=== PATIENT | male | born 1945 | race Caucasian/White ===

== ENCOUNTER 2016-12-24 05:46 | Day surgery (SDC) | payer OTHER ==
--- NOTE | 2016-12-24 06:18 | PDANEPAE ---
ANE History of Present Illness 71 yo male with multi co-morbidities for R shoulder arthroscopy. ANE Past Medical History - Cardiovascular History Hx Hypertension: Yes Hx Arrhythmias: Yes Hx Chest Pain: No Hx Coronary Artery / Peripheral Vascular Disease: No Hx CHF / Valvular Disease: No Hx Palpitations: No Cardiovascular History Comment: cardioversion for flutter 1216 takes flecainide.Converted to NSR 16. - Pulmonary History Hx COPD: No Hx Asthma/Reactive Airway Disease: No Hx Recent Upper Respiratory Infection: No Hx Oxygen in Use at Home: Yes O2 in Use at Home (L/minute): 5L for sleeping;5L 14/wk-while working Hx Sleep Apnea: Yes Sleep Apnea Screening Result - Last Documented: Positive Pulmonary History Comment: sleep apnea-bipap. chronic low o2 sats usually mid 80's - Neurologic History Hx Cerebrovascular Accident: No Hx Seizures: No Hx Dementia: No - Endocrine History Hx Diabetes: Yes Obesity: moderate Endocrine History Comment: type 2 - Renal History Hx Renal Disorders: Yes Renal History Comment: hx kidney stones- passed. - Liver History Hx Hepatic Disorders: Yes Hepatic History Comment: hx hep 40 yrs ago- ostrolus r/t hygiene in [place]. jaundice while living in [place]. - Neurological & Psychiatric Hx Hx Neurological and Psychiatric Disorders: Yes Neurological / Psychiatric History Comment: mild depression- comes and goes - Cancer History Hx Cancer: No - Congenital Disorder History Hx Congenital Disorders: No - GI History Hx Gastrointestinal Disorders: No - Other Health History Other Health History: gout. osteoarthritis. bursitis. tendonitis-3 tendons torn R shoulder. wilson splints. - Chronic Pain History Chronic Pain: Yes (all joints) - Surgical History Prior Surgeries: L total hip 2014. 2011- l shoulder arthroscopy subacromial decompression, rot cuff repair,labral debride. l thumb reconstruction. 2003- tooth ext. ANE Review of Systems Review of Systems: - Exercise capacity METS (RN): 4 METS - Systems Constitutional: Reports: no symptoms EENMT: Reports: other (clear rhinorrhea x3 days last week, now resolved, no other symptoms) Cardiac: Reports: no symptoms Respiratory: Reports: shortness of breath (chronic, stable; worse with activity) ANE Patient History - Allergies Allergies/Adverse Reactions: levofloxacin [From Levaquin] Allergy (Verified 12/19/16 16:08) Other-Enter Comments - Home Medications Home medications: home medication list seen and reviewed Home Medications: Flecainide Acetate [Tambocor] 100 mg PO BIDMEAL 09/03/11 [Last Taken 03/10/16 08 :00] Metoprolol Tartrate [Lopressor 100 mg (*)] 100 mg PO DAILY@09/03/11 [Last Taken 03/10/16 08:00] metFORMIN HCL [Glucophage 500 mg (*)] 500 mg PO BIDMEAL 09/03/11 [Last Taken 08:00] Aspirin EC [Aspirin EC 81 mg (*)] 81 mg PO DAILY 05/24/13 [Last Taken 12/18/16 09:30] Gemfibrozil [Lopid 600 MG (*)] 600 mg PO BIDMEAL 05/24/13 [Last Taken 03/10/16 08:00] Pravastatin Sodium 20 mg PO HS 05/24/13 [Last Taken 03/09/16] Insulin Lispro [Humalog Kwikpen U-100] 35 units SC BIDAC 07/19/15 [Last Taken 08:00] [place]-3 Fatty Acids [Fish Oil 1000 mg (*)] 1,000 mg PO BIDMEAL 07/19/15 [Last Taken 12/19/16 09:30] Acetaminophen [Tylenol 325mg (*)] 650 mg PO Q6 PRN 11/22/15 [Last Taken 03/06/16 ] Losartan Potassium [Cozaar] 50 mg PO DAILY 11/22/15 [Last Taken 03/10/16] Allopurinol [Allopurinol 100 MG (*)] 100 mg PO BID 03/10/16 [Last Taken 08:00] Dulaglutide [Trulicity] 1.5 mg SC MO@03/10/16 [Last Taken 03/04/16] Herbals/Supplements -Info Only 1 ea PO DAILY 03/10/16 [Last Taken 12/19/16 09:30 ] Metoprolol Tartrate [Lopressor 100 mg (*)] 200 mg PO DAILY@18 03/10/16 [Last Taken 03/09/16] ERYTHROMYCIN 2% GEL 12/19/16 [Last Taken Unknown] Lantus 100 UNITS/ML (*) 12/19/16 [Last Taken Unknown] Warfarin Sodium 12/19/16 [Last Taken 12/18/16 19:00] - NPO status NPO Since - Liquids (Date): 12/24/16 NPO Since - Liquids (Time): 02:30 NPO Since - Solids (Date): 12/23/16 - Anes Hx Anes Hx: slow to awaken from anesthesia - Smoking Hx Smoking Status: Never smoked Marijuana use: No - Alcohol Use Alcohol Use: Rarely - Family Anes Hx Family Anes Hx: neg - N/A Family Hx Anesthesia Complications: none ANE Labs/Vital Signs - Labs Result Diagrams: 12/24/16 07:00 - Vital Signs Vital Signs: reviewed preoperatively; see RN documention for details Height: 190.5 cm Weight: 131.542 kg ANE Physical Exam - Airway Neck exam: FROM Mallampati Score: Class 2 Mouth exam: normal dental/mouth exam - Pulmonary Pulmonary: other (coarse breath sounds throughout) - Cardiovascular Cardiovascular: regular rate and rhythym - ASA Status ASA Status: III ANE Anesthesia Plan Anesthesia Plan: general endotracheal anesthesia
[2016-12-24] MEDS ORDERED: BUPIVACAINE 0.5% 30 ML SDV ONE (06:55)
[2016-12-24] MEDS ORDERED: EPINEPHrine 30 MG/30 ML MDV ONE (06:56)
[2016-12-24] MEDS ORDERED: LIDOCAINE 1% 2 ML INJ ID PRN (07:05)
[2016-12-24] MEDS ORDERED: LR 1,000 ML IV ONE (07:05)
[2016-12-24] MEDS ORDERED: ceFAZolin 2 GM in NS 100 ML IV ONE (07:19)
[2016-12-24 07:27] LABS: INR 1.13 (0.83-1.16); PROTIME(PATIENT) 14.4 SEC (12.0-15.0)
[2016-12-24] MEDS ORDERED: LIDOCAINE 2% 5 ML SDV ONE (07:27)
[2016-12-24] MEDS ORDERED: fentaNYL 100 MCG/2 ML INJ ONE ×3 (07:27→10:13)
[2016-12-24] MEDS ORDERED: PROPOFOL/EMULSION 500 MG/50 ML BOTTLE IV ONE ×2 (07:27)
[2016-12-24] MEDS ORDERED: ROCURONIUM 50 MG/5 ML VIAL ONE (07:27)
[2016-12-24] MEDS ORDERED: ceFAZolin 2 GM/DEXTROSE 100 ML IV ONE (07:30)
[2016-12-24] MEDS ORDERED: ONDANSETRON 4 MG/2 ML VIAL ONE (07:35)
[2016-12-24 07:48] LABS: ANION GAP 12 mEq/L (8-16); CARBON DIOXIDE 17 mEq/l (22-31); CHLORIDE 108 mEq/L (97-110); CREATININE 1.4 mg/dL (0.7-1.3); GLOMERULAR FILTRATION RATE 50; GLUCOSE 212 mg/dL (70-100); SODIUM 137 mEq/L (134-144)
[2016-12-24] MEDS ORDERED: INSULIN REGULAR HUMAN 100 UNIT/ML SC ONE ×2 (07:49→10:40)
--- NOTE | 2016-12-24 08:02 | PDGENHP ---
History & Physical Chief Complaint: shoulder pain History of Present Illness: 71 yo Pertinent Past, Social, Family History: none Relevant Physical Exam: pain
[2016-12-24] MEDS ORDERED: LIDOCAINE 1% 300 MG/30 ML SDV ONE (08:10)
[2016-12-24] MEDS ORDERED: INSULIN REGULAR HUMAN 100 UNIT/ML ONE ×2 (08:47→10:40)
[2016-12-24] MEDS ORDERED: LR 500 ML IV PRN (09:40)
[2016-12-24] MEDS ORDERED: HYDROCODONE/APAP 5/325 TAB PO PRN (09:40)
[2016-12-24] MEDS ORDERED: NALOXONE HCL 0.4 MG/ML INJ IVP PRN ×2 (09:40→09:42)
[2016-12-24] MEDS ORDERED: ACETAMINOPHEN 500 MG TAB PO PRN (09:40)
[2016-12-24] MEDS ORDERED: ALBUTEROL 3 ML DEYVIAL IH PRN (09:40)
[2016-12-24] MEDS ORDERED: PROMETHAZINE HCL 25 MG/ML INJ IVP PRN (09:40)
--- NOTE | 2016-12-24 10:14 | POSTANESTH ---
Post Anesthetic Evaluation Cardiovascular Status: Normal, Stable Respiratory Status: Tx Decrease in SpO2 Level of Consciousness/Mental Status: Can Participate in Eval, Mildly Sleepy, Arousable Pain Control: Adequate, Prn Tx Ordered Nausea/Vomiting Control: Adequate, Prn Tx Ordered Complications Possibly Related to Anesthesia: None Noted (Pt on home CPAP settings with O2 bleed in to maintain SpO2 >90%)
[2016-12-24] MEDS: fentaNYL 100 MCG/2 ML INJ IVP PRN ×2 (10:15→10:39)
[2016-12-24] MEDS ORDERED: HYDROCODONE/APAP 5/325 TAB ONE (11:06)
[2016-12-24 11:59] VITALS: PULSE 53; TEMP 96.8
[2016-12-24 14:31] VITALS: BP 127/74; RESP 15; O2SAT 90
--- NOTE | 2017-01-09 12:52 | GOP ---
[f rep st] OPERATIVE REPORT DATE OF OPERATION: 12/24/2016 SURGEON: Estela Reyes MD ANESTHESIA: General. PREOPERATIVE DIAGNOSIS: Right shoulder impingement syndrome with associated labral pathology, glenoh umeral arthritic changes, acromioclavicular arthropathy. Rule out biceps tendinitis. POSTOPERATIVE DIAGNOSIS: Right shoulder impingement syndrome with associated labral pathology, gleno humeral arthritic changes, acromioclavicular arthropathy. Rule out biceps tendinitis. With signific antly fraying of the long head of the biceps involving the intra-articular portion. PROCEDURE PERFORMED: 1. Arthroscopic debridement of partial-thickness rotator cuff tear, labral fraying, and glenohumeral chondral changes. 2. Arthroscopic subacromial decompression. 3. Biceps tenotomy. 4. Channing resection of distal clavicle. FINDINGS: ESTIMATED BLOOD LOSS: 5 cc. INDICATIONS: This patient is a 71-year-old right-hand dominant male, who has had right shoulder pain , which has been unresponsive to conservative management. He has been evaluated with an MRI scan, wh ich shows evidence of the above-noted preoperative diagnoses. He was admitted for operative treatmen t. DESCRIPTION OF PROCEDURE: After the induction of a general anesthetic, the patient was placed on the operating room table in a modified beach chair position. His right shoulder, axilla, and arm were p repped and draped in the usual fashion. Standard arthroscopic portals were utilized. The scope was introduced through the posterior portal, and the glenohumeral joint inspected. The intra-articular e xam was remarkable for a constellation of abnormal findings. There was a partial-thickness tear invo lving the supraspinatus at its insertion on the greater tuberosity. This was minimally debrided. It appeared to involve much less than 50% of the depth of the tendon in a segment that measured approxi mately a centimeter and a half in length. It was felt to be a lesion that would likely heal followin g decompression. The glenoid and humeral articular surfaces were in relatively good condition. There was some focal c hondral damage on both the humeral and glenoid sides, which was minimally debrided. There were no ar eas of full-thickness loss. The biceps tendon was inspected. There was sign fraying, as the long head of the biceps exited the s houlder. The damage appeared to be greater than what would likely heal following debridement and dec ompression. A biceps tenotomy was therefore performed. There was some fraying of the anterior and superior labrum, which was minimally debrided with the rot vannessa debrider. The glenohumeral ligament/labral complex appeared to be competent. The scope was passed to the subacromial space. There was marked chaffing of the CA ligament at its i nsertion on the anterior acromion. The undersurface of the acromion was resected, and the CA ligament released. The markedly-prominent anterior lip to the acromion was removed with the rotary best. Approximately a centimeter of anterio r bone was resected. The resection was tapered posteriorly till it blended nicely with the subacromi al surface. This nicely decompressed the subacromial space. The AC joint was inspected. There was diffuse grade 3 with focal grade 4 arthritic change on the dis tatyana clavicle. There was also a large spur emanating from the inferior surface of the distal clavicle , encroaching on the acromial outlet. A distal clavicular excision was, therefore, performed. Appro ximately the distal centimeter of the clavicle was removed. At this point, the debrider was evacuated from the shoulder and subacromial space before the arthrosc opic equipment was removed. The portals were infiltrated with 0.25% Marcaine solution before being c losed with 5-0 Vicryl. Steri-Strips and sterile compressive dressing were applied, and the patient w as awakened from his anesthetic without complication. COMPLICATIONS: None. /[id number]/MODL
== END 2016-12-24 14:44 | disposition home or self-care (01) ==
LOC: FSGY 05:46
PROVIDERS: ATTEND Orthopaedic Surgery
PROC: 0LS14ZZ Reposition Right Shoulder Tendon, Percutaneous Endoscopic Approach (ICD-10-PCS; principal; 2016-12-24 07:15)
PROC: 0MB14ZZ Excision of Right Shoulder Bursa and Ligament, Percutaneous Endoscopic Approach (ICD-10-PCS; principal; 2016-12-24 07:15)
PROC: 0PB94ZZ Excision of Right Clavicle, Percutaneous Endoscopic Approach (ICD-10-PCS; principal; 2016-12-24 07:15)
PROC: 0MN14ZZ Release Right Shoulder Bursa and Ligament, Percutaneous Endoscopic Approach (ICD-10-PCS; principal; 2016-12-24 07:15)
DX: S46.191A Other injury of muscle, fascia and tendon of long head of biceps, right arm, initial encounter (principal); S43.421A Sprain of right rotator cuff capsule, initial encounter; M19.011 Primary osteoarthritis, right shoulder
CPT/HCPCS: J0171; J0690; J1815; J2405; J2704; J3010

== ENCOUNTER 2017-07-03 15:22 | Inpatient (IN) | payer OTHER ==
--- NOTE | 2017-07-03 16:16 | CPEKG ---
Heart Rate: 46 RR Interval: 1304 P-R Interval: 268 QRSD Interval: 132 QT Interval: 524 QTC Interval: 459 P [place]: 34 QRS [place]: 242 T Wave [place]: 51 EKG Severity - ABNORMAL ECG - EKG Impression: SINUS BRADYCARDIA EKG Impression: FIRST DEGREE AV BLOCK EKG Impression: NONSPECIFIC IVCD WITH LAD EKG Impression: BORDERLINE R WAVE PROGRESSION, ANTERIOR LEADS Electronically Signed By: Nel Garsia 03-Jul-2017 21:38:30
--- NOTE | 2017-07-03 16:16 | EDPHY ---
HPI/HX/ROS/PE/MDM Narrative: CHIEF COMPLAINT: Dizzy, lightheaded HISTORY OF PRESENT ILLNESS: The patient is an anticoagulated (Coumadin) 72 y/o male with a history of atrial fibrillation and type 2 diabetes complaining of intermittent episodes feeling dizzy and lightheaded that last for several hours, onset 3 days ago. His physician recommended that he present to the ED today as the dizziness has not improved. He is currently not feeling dizzy. Denies taking medications for CHF. Patient is on flecainide for arrhythmias No fever, chills, chest pain, shortness of breath, palpitations, vomiting, diarrhea, urinary complaints, headache. REVIEW OF SYSTEMS: Aside from elements discussed in the HPI, a comprehensive 10-point review of systems was reviewed and is negative. PAST MEDICAL HISTORY: Atrial fibrillation, type 2 diabetes, low O2 sats (seen at [facility]) with O2 dependency,, hepatitis A, multiple ortho surgeries, wears 4L supplemental oxygen with exertion. SOCIAL HISTORY: Friend at bedside, employed, lives in [place] VITAL SIGNS: Reviewed by me GENERAL: Obese gentleman, resting comfortably in no respiratory distress. HEENT: Atraumatic. Eyes: No icterus, no injection. Mouth: moist mucous membranes. No erythema or lesions. Neck: supple with no adenopathy. LUNGS: Clear to auscultation bilaterally, no wheezes, rhonchi or rales. CARDIAC: Regular bradycardia with a rate of 40, no rubs, murmurs or gallops. ABDOMEN: Soft, nontender, nondistended, bowel sounds normal. BACK: No CVA tenderness. EXTREMITIES: No trauma. No edema. Range of motion is normal throughout. NEURO: Alert and oriented, grossly nonfocal. SKIN: Warm and dry, no rash. PSYCHIATRIC: Normal mentation, no agitation. Portions of this note were transcribed by a medical dir. I personally performed a history, physical exam, medical decision making, and confirmed accuracy of information the transcribed note. ED Course: The patient is an anticoagulated (Coumadin) 72 y/o male with a history of atrial fibrillation and type 2 diabetes presenting with intermittent episodes of feeling dizzy and lightheaded that last for several hours, onset 3 days ago. Labs and EKG ordered. 1614: 12-LEAD EKG: Please see the full report in [facility]. My interpretation : Sinus bradycardia with a rate of 46, first degree AV block 1706: Patient has a potassium of 6.1 and a creatinine of 1.5. Given his dizziness in the setting of bradycardia as well as worsening renal function with a potassium of 6.1, patient received treatment for hyperkalemia including calcium, bicarbonate, D50, insulin. 1715: Consulted with hospitalist service, Dr. Avila accepts admission of this patient. Reassessed patient and discussed laboratory and EKG findings. I have also discussed plan for admission, which he is comfortable with. MDM: Differential diagnosis of the patient's dizziness was considered including but not limited to peripheral and central causes of vertigo, cardiac arrhythmias, cardiac ischemia, electrolyte disturbances, neurologic causes, orthostatic causes including dehydration, and blood loss. - Data Points Imaging Results: Imaging Impressions Carotid Doppler Study 07/03/17 06:00 Impression: No evidence of flow-limiting carotid stenosis. Measurement of carotid stenosis is based on velocity parameters that correlate the residual internal carotid diameter with [place] Symptomatic Carotid Endarterectomy Trial (NASCET) based stenosis levels. Laboratory Results: Laboratory Results 07/03/17 16:20 07/03/17 16:20 07/03/17 07/03/17 16:20 16:20 WBC 6.67 10^3/uL 10^3/uL (3.80-9.50) RBC 5.16 10^6/uL 10^6/uL (4.40-6.38) Hgb 16.0 g/dL g/dL (13.7-17.5) Hct 47.6 % % (40.0-51.0) MCV 92.2 fL fL (81.5-99.8) MCH 31.0 pg pg (27.9-34.1) MCHC 33.6 g/dL g/dL (32.4-36.7) RDW 15.3 % H % (11.5-15.2) Plt Count 188 10^3/uL 10^3/uL (150-400) MPV 10.8 fL fL (8.7-11.7) Neut % (Auto) 51.6 % % (39.3-74.2) Lymph % (Auto) 34.8 % % (15.0-45.0) [place] % (Auto) 9.3 % % (4.5-13.0) Eos % (Auto) 3.3 % % (0.6-7.6) Baso % (Auto) 0.6 % % (0.3-1.7) Nucleat RBC Rel Count 0.0 % % (0.0-0.2) Absolute Neuts (auto) 3.44 10^3/uL 10^3/uL (1.70-6.50) Absolute Lymphs (auto) 2.32 10^3/uL 10^3/uL (1.00-3.00) Absolute Monos (auto) 0.62 10^3/uL 10^3/uL (0.30-0.80) Absolute Eos (auto) 0.22 10^3/uL 10^3/uL (0.03-0.40) Absolute Basos (auto) 0.04 10^3/uL 10^3/uL (0.02-0.10) Absolute Nucleated RBC 0.00 10^3/uL 10^3/uL (0-0.01) Immature Gran % 0.4 % % (0.0-1.1) Immature Gran # 0.03 10^3/uL 10^3/uL (0.00-0.10) Sodium 139 mEq/L mEq/L (135-145) Potassium 6.1 mEq/L H mEq/L (3.5-5.2) Chloride 109 mEq/L mEq/L (97-110) Carbon Dioxide 19 mEq/l L mEq/l (22-31) Anion Gap 11 mEq/L mEq/L (8-16) BUN 42 mg/dL H mg/dL (7-23) Creatinine 1.5 mg/dL H mg/dL (0.7-1.3) Estimated GFR 46 Glucose 223 mg/dL H mg/dL (70-100) Calcium 8.6 mg/dL mg/dL (8.5-10.4) Troponin I < 0.012 ng/mL ng/mL (0.000-0.034) Specimen Hemolysis 101 Medications Given: Insulin Glargine (Lantus Syringe) 40 units SC BID EARL Stop: 12/30/17 20:59 Last Admin: 07/03/17 22:17 Dose: 40 units [id number] Ethyl Esters (Fish Oil) 1,000 mg PO TID EARL Stop: 12/30/17 21:59 Last Admin: 07/03/17 22:17 Dose: 1,000 mg Pravastatin Sodium (Pravachol) 20 mg PO HS EARL Stop: 12/30/17 20:59 Last Admin: 07/03/17 22:17 Dose: 20 mg Discontinued Medications Calcium Gluconate (Calcium Gluconate) 1 gm IVP EDNOW ONE Stop: 07/03/17 17:05 Last Admin: 07/03/17 17:14 Dose: 1 gm Dextrose (Dextrose 50% Syringe) 25 gm IVP EDNOW ONE Stop: 07/03/17 17:05 Last Admin: 07/03/17 17:15 Dose: 25 gm Furosemide (Lasix Injection) 20 mg IVP ONCE ONE Stop: 07/03/17 21:12 Last Admin: 07/03/17 22:17 Dose: 20 mg Sodium Bicarbonate 150 meq/ (Dextrose) 1,150 mls @ 0 mls/hr IV EDNOW ONE PRN Reason: As Directed Stop: 07/03/17 17:05 Last Admin: 07/03/17 17:39 Dose: 1,150 mls Insulin Human Regular (Humulin R) 10 unit IVP EDNOW ONE Stop: 07/03/17 17:05 Last Admin: 07/03/17 17:20 Dose: 10 units Sodium Polystyrene Sulfonate (Kayexalate) 30 gm PO EDNOW ONE Stop: 07/03/17 17:05 Last Admin: 07/03/17 17:23 Dose: 30 gm General Time Seen by Provider: 07/03/17 16:14 Initial Vital Signs: Initial Vital Signs Temperature (C) 36.7 C 07/03/17 15:34 Heart Rate 49 L 07/03/17 15:34 Respiratory Rate 18 07/03/17 15:34 Blood Pressure 161/81 H 07/03/17 15:34 O2 Sat (%) 92 07/03/17 15:34 O2 Delivery Mode Room Air Allergies/Adverse Reactions: levofloxacin [From Levaquin] Allergy (Verified 07/03/17 15:32) Other-Enter Comments Home Medications: Medication Instructions Recorded Flecainide Acetate [Tambocor] 100 mg PO BIDMEAL 09/03/11 metFORMIN HCL [Glucophage 500 mg 500 mg PO BIDMEAL 09/03/11 (*)] Aspirin EC [Aspirin EC 81 mg (*)] 81 mg PO DAILY 05/24/13 Pravastatin Sodium 20 mg PO HS 05/24/13 [place]-3 Fatty Acids [Fish Oil 1000 1,000 mg PO TID 07/19/15 mg (*)] Losartan Potassium [Cozaar] 50 mg PO DAILY 11/22/15 Allopurinol [Allopurinol 100 MG 100 mg PO BID 03/10/16 (*)] Herbals/Supplements -Info Only 1 ea PO DAILY 03/10/16 Insulin Detemir [Levemir] 40 unit SQ BID 07/03/17 Insulin Lispro [Humalog] 25 unit SQ DAILY@07/03/17 Insulin Lispro [Humalog] 40 unit SQ BID 07/03/17 Warfarin Sodium [Coumadin 5MG (*)] 5 mg PO MOTUWETHFRSA@07/03/17 Warfarin Sodium [Coumadin 5MG (*)] 5 mg PO DOWNING@07/03/17 Departure - Departure Disposition: [facility] Acute Clinical Impression: Hyperkalemia, Bradycardia, Dizziness, Renal insufficiency Condition: Fair Report Scribed for: Nel Garsia Report Scribed by: Reina Rodriguez Date of Report: 07/03/17 Time of Report: 16:16
[2017-07-03 16:29] LABS: PLATELET COUNT 188 10^3/uL (150-400)
[2017-07-03] MEDS ORDERED: D50W 25 GM/50 ML SYR IVP ONE (17:04)
[2017-07-03] MEDS ORDERED: SODIUM BICARBONATE 150 MEQ in D5W 1,000 ML IV ONE (17:04)
[2017-07-03] MEDS ORDERED: CALCIUM GLUC 10% 1 GM/10 ML VIAL IVP ONE (17:04)
[2017-07-03] MEDS ORDERED: SODIUM POLY SULF 15 GM/60 ML BOTTLE PO ONE (17:04)
[2017-07-03] MEDS ORDERED: INSULIN REGULAR HUMAN 100 UNIT/ML UNIT IVP ONE (17:04)
[2017-07-03] MEDS ORDERED: ONDANSETRON DISINTEGRATING 4 MG TAB PO PRN (20:51)
[2017-07-03] MEDS ORDERED: D50W 25 GM/50 ML VIAL IVP PRN (20:51)
[2017-07-03] MEDS ORDERED: HYDROCODONE/APAP 5/325 TAB PO PRN (20:51)
[2017-07-03] MEDS ORDERED: ACETAMINOPHEN 325 MG TAB PO PRN (20:51)
[2017-07-03] MEDS ORDERED: ONDANSETRON 4 MG/2 ML VIAL IVP PRN (20:51)
[2017-07-03] MEDS ORDERED: hydrALAZINE 20 MG/ML VIAL IVP PRN (20:55)
[2017-07-03] MEDS ORDERED: PRAVASTATIN SODIUM 20 MG TAB PO SCH (21:00)
[2017-07-03] MEDS ORDERED: FUROSEMIDE 20 MG/2 ML VIAL IVP ONE (21:11)
--- NOTE | 2017-07-03 21:29 | PDGENHP ---
History and Physical - Chief Complaint dizzy, weakness - History of Present Illness 72 y/o male with a history of atrial fibrillation and type 2 diabetes complaining of intermittent episodes feeling dizzy and lightheaded that last for several hours, onset 3 days ago. His physican recommended that he present to the ED today as the dizziness has not improved. He is currently not feeling dizzy. Over the past few weeks he has been having MCMULLEN and has noticed leg swelling. He uses 4 L O2 while working and while sleeping. He has not had an increased to this. He does not use any at rest. He has not had any chest pain. He has not felt palpitations. He denies a hx of CHF He has a hx of Afib which he says he is typically not in. Here he was noted to have sinus bradycardia in the mid 40's. He was also noted to have hyperkalemia and this was treated in the E.D. No fever, chills, chest pain, shortness of breath, palpitations, vomiting, diarrhea, urinary complaints, headache. PAST MEDICAL HISTORY: Atrial fibrillation, type 2 diabetes, low O2 sats (seen at [facility]), hepatitis A, multiple ortho surgeries, wears 4L supplemental oxygen with exertion. SOCIAL HISTORY: lives in [place], no tobacco Fmx: [place] Lab/Data: Reviewed History Information - Allergies/Home Medication List Allergies/Adverse Reactions: levofloxacin [From Levaquin] Allergy (Verified 07/03/17 15:32) Other-Enter Comments Home Medications: Flecainide Acetate [Tambocor] 100 mg PO BIDMEAL 09/03/11 [Last Taken 07/03/17] metFORMIN HCL [Glucophage 500 mg (*)] 500 mg PO BIDMEAL 09/03/11 [Last Taken ] Aspirin EC [Aspirin EC 81 mg (*)] 81 mg PO DAILY 05/24/13 [Last Taken 07/03/17] Pravastatin Sodium 20 mg PO HS 05/24/13 [Last Taken 07/02/17] [place]-3 Fatty Acids [Fish Oil 1000 mg (*)] 1,000 mg PO TID 07/19/15 [Last Taken 07/03/17] Losartan Potassium [Cozaar] 50 mg PO DAILY 11/22/15 [Last Taken 07/03/17] Allopurinol [Allopurinol 100 MG (*)] 100 mg PO BID 03/10/16 [Last Taken 07/03/17 ] Herbals/Supplements -Info Only 1 ea PO DAILY 03/10/16 [Last Taken 12/19/16 09:30 ] Insulin Detemir [Levemir] 40 unit SQ BID 07/03/17 [Last Taken 07/03/17] Insulin Lispro [Humalog] 25 unit SQ DAILY@12 07/03/17 [Last Taken 07/03/17] Insulin Lispro [Humalog] 40 unit SQ BID 07/03/17 [Last Taken 07/03/17] Warfarin Sodium [Coumadin 5MG (*)] 5 mg PO MOTUWETHFRSA@07/03/17 [Last Taken 07/02/17] Warfarin Sodium [Coumadin 5MG (*)] 5 mg PO DOWNING@16 07/03/17 [Last Taken 06/29/17] I have personally reviewed and updated: medical history, social history - Social History Smoking Status: Never smoked Review of Systems Review of Systems: ROS: 10pt was reviewed & negative except for what was stated in HPI & below Physical Exam Physical Exam: Temp Pulse Resp BP Pulse Ox 36.6 C 48 L 16 187/78 H 90 L 07/03/17 20:01 07/03/17 20:01 07/03/17 20:01 07/03/17 20:01 07/03/17 20:01 O2 (L/minute) 2 Constitutional: no apparent distress Eyes: PERRL, EOMI Ears, Nose, Mouth, Throat: moist mucous membranes, hearing normal Cardiovascular: regular rate and rhythym, edema (trace LE edema bilaterally), No JVD Respiratory: other (decreased at bases) Gastrointestinal: normoactive bowel sounds, soft, non-tender abdomen Skin: warm Musculoskeletal: full muscle strength Neurologic: AAOx3 Psychiatric: interacting appropriately, not anxious, not encephalopathic Lab Data & Imaging Review 07/03/17 16:20 07/03/17 16:20 WBC 6.67 10^3/uL (3.80-9.50) 07/03/17 16:20 RBC 5.16 10^6/uL (4.40-6.38) 07/03/17 16:20 Hgb 16.0 g/dL (13.7-17.5) 07/03/17 16:20 Hct 47.6 % (40.0-51.0) 07/03/17 16:20 MCV 92.2 fL (81.5-99.8) 07/03/17 16:20 MCH 31.0 pg (27.9-34.1) 07/03/17 16:20 MCHC 33.6 g/dL (32.4-36.7) 07/03/17 16:20 RDW 15.3 % (11.5-15.2) H 07/03/17 16:20 Plt Count 188 10^3/uL (150-400) 07/03/17 16:20 MPV 10.8 fL (8.7-11.7) 07/03/17 16:20 Neut % (Auto) 51.6 % (39.3-74.2) 07/03/17 16:20 Lymph % (Auto) 34.8 % (15.0-45.0) 07/03/17 16:20 [place] % (Auto) 9.3 % (4.5-13.0) 07/03/17 16:20 Eos % (Auto) 3.3 % (0.6-7.6) 07/03/17 16:20 Baso % (Auto) 0.6 % (0.3-1.7) 07/03/17 16:20 Nucleat RBC Rel Count 0.0 % (0.0-0.2) 07/03/17 16:20 Absolute Neuts (auto) 3.44 10^3/uL (1.70-6.50) 07/03/17 16:20 Absolute Lymphs (auto) 2.32 10^3/uL (1.00-3.00) 07/03/17 16:20 Absolute Monos (auto) 0.62 10^3/uL (0.30-0.80) 07/03/17 16:20 Absolute Eos (auto) 0.22 10^3/uL (0.03-0.40) 07/03/17 16:20 Absolute Basos (auto) 0.04 10^3/uL (0.02-0.10) 07/03/17 16:20 Absolute Nucleated RBC 0.00 10^3/uL (0-0.01) 07/03/17 16:20 Immature Gran % 0.4 % (0.0-1.1) 07/03/17 16:20 Immature Gran # 0.03 10^3/uL (0.00-0.10) 07/03/17 16:20 Sodium 139 mEq/L (135-145) 07/03/17 16:20 Potassium 6.1 mEq/L (3.5-5.2) H 07/03/17 16:20 Chloride 109 mEq/L (97-110) 07/03/17 16:20 Carbon Dioxide 19 mEq/l (22-31) L 07/03/17 16:20 Anion Gap 11 mEq/L (8-16) 07/03/17 16:20 BUN 42 mg/dL (7-23) H 07/03/17 16:20 Creatinine 1.5 mg/dL (0.7-1.3) H 07/03/17 16:20 Estimated GFR 46 07/03/17 16:20 Glucose 223 mg/dL (70-100) H 07/03/17 16:20 Calcium 8.6 mg/dL (8.5-10.4) 07/03/17 16:20 Troponin I < 0.012 ng/mL (0.000-0.034) 07/03/17 16:20 Specimen Hemolysis 101 07/03/17 16:20 Assessment & Plan Assessment: #Acute Hyperkalemia -No EKG changes -s/p treatment in the E.D. -Has not received diuretics #[place]valdo Syncope, Dizziness, and generalized weakness #sinus bradycardia with a hx of Afib #Acute vs chronic renal failure -Does not appear to be intravascularly dry #IDDM #HTN -takes Losartan at home #chronic AC with Warfarin -INR not checked #chronic resp failure with MCMULLEN Plan: Admit check TTE, serial trops, telemetry Unclear if Cards was consulted in the E.D. He sees Dr. Pedroza in the E.D. He has pedal edema and decreased lung sounds at bases. Given these findings and Hyperkalemia, I will provide small amount of Lasix now. Unfortunately a CXR was not obtained, and Ill check one now Hold Losartan and it could have contributed to the Hyperkalemia. Can treat HTN with IV Hydralazine overnight Cont Flecainide for now. This has reported less than 1 % incidence of causing bradycardia. Cards to eval Home insulin. Holding Metformin Coumadin per pharmacy. INR was not checked, ill order now Monitor cr closely. This may be chronic but BUN elevation noted. Will obtain urine studies. DNR, confirmed at bedside
[2017-07-03] MEDS: INSULIN GLARGINE 100 UNITS/ML UNIT SC SCH (22:17)
[2017-07-03] MEDS: OMEGA-3 FATTY ACIDS 1,000 MG CAP PO SCH (22:17)
[2017-07-03 22:39] LABS: INR 1.62 (0.83-1.16); PROTIME(PATIENT) 19.4 SEC (12.0-15.0)
[2017-07-03] MEDS: FLECAINIDE ACETATE 100 MG TAB PO SCH (23:40)
[2017-07-03] MEDS ORDERED: WARFARIN SODIUM 5 MG TAB PO ONE (23:45)
[2017-07-04 04:18] LABS: PLATELET COUNT 153 10^3/uL (150-400)
[2017-07-04] MEDS ORDERED: D50W 25 GM/50 ML SYR IVP PRN (08:33)
[2017-07-04] MEDS ORDERED: ASPIRIN EC 81 MG TAB PO SCH (09:00)
[2017-07-04] MEDS ORDERED: Herbals/Supplements -Info Only PO SCH (09:00)
--- NOTE | 2017-07-04 09:01 | CPEKG ---
Heart Rate: 48 RR Interval: 1250 P-R Interval: 264 QRSD Interval: 118 QT Interval: 516 QTC Interval: 462 P [place]: 55 QRS [place]: -35 T Wave [place]: 61 EKG Severity - ABNORMAL ECG - EKG Impression: SINUS BRADYCARDIA EKG Impression: FIRST DEGREE AV BLOCK EKG Impression: NONSPECIFIC INTRAVENTRICULAR CONDUCTION DELAY EKG Impression: PROBABLE ANTEROSEPTAL INFARCT, AGE INDETERM EKG Impression: No significant change from July 03, 2017 Electronically Signed By: Paul Billings 04-Jul-2017 10:46:52
--- NOTE | 2017-07-04 09:09 | PDMN ---
Medical Necessity Medical necessity: GRG systemic condition - Hyperkalemia E 87.5 2 days: vs. M326 renal failure: acute hyperkalemia ( K 6.1) , near syncope, sinus bradycardia ( 42-48 bpm) , with HX of afib., acute vs. chronic renal failure Cr.. (1.5) , IDDM, HTN, chronic AC with Warfarin, Chronic resp failure with MCMULLEN , anticipate > 2 midnights ongoing med nec care for monitoring, further eval and tx.
[2017-07-04] MEDS: FLECAINIDE ACETATE 100 MG TAB PO SCH (09:32)
[2017-07-04] MEDS: INSULIN REGULAR HUMAN 100 UNIT/ML UNIT SC SCH ×2 (09:32→12:11)
[2017-07-04] MEDS: OMEGA-3 FATTY ACIDS 1,000 MG CAP PO SCH (09:32)
[2017-07-04] MEDS: INSULIN GLARGINE 100 UNITS/ML UNIT SC SCH (09:33)
[2017-07-04] MEDS ORDERED: MAGNESIUM SULF 1 GM/DEXTROSE 100 ML IV ONE (11:30)
--- NOTE | 2017-07-04 11:31 | ECHO ---
[email or web address] [address] [address] Main: [phone] Fax: Transthoracic Echocardiogram Name: JUDIE CHILEL MR#: [id number] Study Date: 07/04/2017 Study Time: 08:01 AM Date of : 1945 Age: 72 year(s) Height: 190.5 cm (75 in.) Weight: 136.99 kg (302 lb.) BSA: 2.61 m2 Gender: Male Examination: Echo Indication: Bradycardia. Hyperkalemia Image Quality: Contrast: Requested by: Carlos Avila BP: 129 mmHg/72 mmHg Heart Rate: Rhythm: Sinus bradycardia Indication: Bradycardia. Hyperkalemia Procedure Staff Instructor Robotics: Cyril Greenberg RDCS Reading Physician: Jose Machado MD Requesting Provider: Conclusions: Normal size left ventricle. Mild concentric LV hypertrophy. Normal global systolic LV function. EF is 78 %. No regional wall motion abnormality. Diastolic dysfunction is present. . Normal size right ventricle. Normal RV function. The left atrium is normal in size. The right atrium is normal in size. The mitral valve is normal in appearance and function. No aortic valve stenosis is present. There is mild focal calcification of the non coronary aortic valve cusp.. The tricuspid valve is normal in appearance and function. The pulmonic valve is normal in appearance and function. Measurements: Chambers Valvular Assessment AV/MV Valvular Assessment TV/PV Normal Normal Normal Name Value Range Name Value Range Name Value Range Ao Lola (MM): 4.0 cm (2.2 cm-3.7 AV Vmax: 1.10 m/s (1 m/s-1.7 PV Vmax: 0.68 m/s (0.6 m/s-0.9 cm) m/s) m/s) IVSd (2D): 1.7 cm (0.6 cm-1.1 AV maxP mmHg ( - ) PV PGmax: 2 mmHg ( - ) cm) LVOT Vmax: 0.87 m/s (0.7 m/s-1.1 LVDd (2D): 4.8 cm (4.2 cm-5.9 m/s) cm) MV E Vmax: 0.51 m/s ( - ) LVDs (2D): 2.6 cm (2.1 cm-4 MV A Vmax: 0.58 m/s ( - ) cm) MV E/A: 0.88 ( - ) LVPWd (2D): 1.4 cm (0.6 cm-1 cm) Patient: JUDIE CHILEL Study Date: 07/04/2017 Page 1 of 2 08:01 AM LVEF (2D): 78 (>=54 %) Continued Measurements: Chambers Valvular Assessment AV/MV Name Value Name Value LADs Lon.8 cm MV E' Septal: 0.07 m/s LA Area: 21.0 cm2 MV E/E' Septal: 7.70 LA Volume: 72 ml MV E/E' Lateral: 10.90 LA Volume Index: 27.6 ml/m2 Findings: Left Ventricle: Normal size left ventricle. Mild concentric LV hypertrophy. Normal global systolic LV function. EF is 78 %. No regional wall motion abnormality. Diastolic dysfunction is present. . Right Ventricle: Normal size right ventricle. Normal RV function. Left Atrium: The left atrium is normal in size. Right Atrium: The right atrium is normal in size. Mitral Valve: The mitral valve is normal in appearance and function. Aortic Valve: No aortic valve stenosis is present. There is mild focal calcification of the non coronary aortic valve cusp.. Tricuspid Valve: The tricuspid valve is normal in appearance and function. Pulmonic Valve: The pulmonic valve is normal in appearance and function. Aorta: The aorta is normal. Pericardium: No pericardial effusion. (No Signature Object) Patient: JUDIE CHILEL Study Date: 07/04/2017 Page 2 of 2 08:01 AM [id number]
[2017-07-04] MEDS ORDERED: INSULIN LISPRO 100 UNIT/ML SC SCH (12:00)
[2017-07-04 12:19] VITALS: BP 166/83
--- NOTE | 2017-07-04 12:25 | ASMTCASEMG ---
Living Arrangements What is your living Answers: Alone arrangement? Who do you live with? Type Of Residence What kind of residence do Answers: Apartment you live in? Discharge Plan Comments Coordination Status Comments Notes: Pts case discussed in morning rounds. Pt is a 72 y/o man admitted for hyperkalemia, bradycardia and dizziness. PT has been ordered and awaiting recommendations. Needs are TBD at this time. CM to follow. Plan: TBD Date Signed: 07/04/2017 12:24 PM Electronically Signed By:MARIA G Mclaughlin
--- NOTE | 2017-07-04 14:16 | GCON ---
[f rep st] CONSULTATION CARDIOVASCULAR CONSULTATION. HISTORY: He is in the hospital because he has been feeling dizzy. From Friday to when he came in the hospital, he continued to be dizzy on and off. He felt a little bit lightheaded, a littl e short of breath and has not been feeling very well. For that reason, he came into the hospital. No chest pain. He has chronic dyspnea on exertion, but it is minor according to him. He does not have edema. He has a history of atrial fibrillation in past. He has had atrial flutter in the past. He has not felt any of those symptoms now. He denie s fevers, chills, cough, nausea, vomiting, diarrhea. Chest pain, chest tightness, jaw pain, no arm pain. No hot, swollen joints, no major rashes, no phot ophobia, stiff neck, sore throat, no dysphagia or hoarseness. No trauma to that neck or chest. No history of rheumatic disease, claudication, cerebrovascular disease. No dysuria or frequency. He has cardiac risk factors positive for hypertension, diabetes mellitus, hyperuricemia, obesity. Cardiac risk factors are negative for dyslipidemia, which is hard to believe. Family history of shalini ature coronary artery disease, smoking. He has no known coronary artery disease. He has sleep apnea and uses a mask which he has with him. Two years ago, his history was that his heart was going fast. He was at work. It all of a sudden ju mp to 140 to 160. He came into the emergency room and he had atrial flutter. He was cardioverted an d he left. He has eaten today. He has not ever passed out. He has had episodes where he thinks he might pass out. He does not have headaches or stiff neck. He has not had trauma to the head, neck, or chest. PAST MEDICAL HISTORY/FAMILY HISTORY: He has no family history of premature coronary artery disease. His mother had some coronary disease at young age, but was not even enough to increase his risk for coronary disease. REVIEW OF SYSTEMS: 10-point review of systems negative except as noted in this record and the record itself. MEDICATIONS: Listed in the chart. His medications have included insulin, fish oil, Pravachol, calci um gluconate and the list is available in the record. SOCIAL HISTORY: He was born [place] [facility] [place] He was born [place] [facility] [address] [place]. He has been in [place] to practice Sikhism. 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 He is a Mandaeism. He wanted to practice and live here. He lives alone at this time. He some children who are healthy. 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 He does not do any steady exercise on a regular basis. He does have a dog, but he said he is not very successful at walking it. He does not smoke. Does not drink significant amounts of alcohol and is a practicing Mandaeism. He i s very committed to that. PHYSICAL EXAMINATION: VITAL SIGNS: Heart rate when he came in was 49, his blood pressure 161/81, re spiratory rate 18. HEENT: Pupils equal and reactive. Mucous membranes and mouth moist. NECK: Sup ple. CARDIOVASCULAR: S1, S2. Soft systolic murmur left sternal border. No diastolic murmur. No S 3, S4. No rubs. PULMONARY: Rhonchi. No rales, wheezing or dullness. ABDOMEN: Soft, nontender, w ithout masses, quite obese. CVA: No tenderness. EXTREMITIES: No ulcerations and no tenderness. N EUROLOGIC: Grossly intact. PSYCH: No obvious anxiety or depression. LABS: 1. Potassium was 6.1, creatinine 1.5. EKG shows a heart rate of 46, first-degree AV block, sinus br adycardia, interventricular conduction delay. 2. Chest x-ray showed cardiomegaly. Echocardiographic study was obtained, and that study showed mil d concentric LV hypertrophy. Ejection fraction 78%. Normal LV systolic function. Diastolic dysfunc tion. Normal RV function. ASSESSMENT AND PLAN: 1. Dizziness. 2. Bradycardia. 3. Obesity. 4. Diabetes. 5. Hypertension. 6. Hyperuricemia. 7. History of atrial flutter. Patient is on full anticoagulation and is going to continue to do that for his history of atrial arrh ythmias. He is bradycardic and he has been dizzy. He feels better today. He is still bradycardic. He does n ot feel in any way that he would accept a pacemaker at this point in time. His father had a pacemake r which he thinks killed his father and I said to him,even if you had a combination of abnormal thing s on an EKG such as significant block and we would recommend strongly a pacemaker would you be saurav morales, he said he will not under any circumstances take one at this time period. He wants to lose weight, get in shape and see how he feels overall. At this time, he has no indication for pacemaker, but he is bradycardic. . The pharmacy is looking over his medications to see if he was on anything that was lower ing his heart rate when he came into the hospital. As far as I can tell looking at the record I do not see anything. His echocardiogram was unremarkabl e. He has no chest pain, chest tightness, or symptoms of acute coronary syndrome. I think it would be good for him down the road to have an outpatient nuclear study. I would do an outpatient nuclear stress test on him with Lexiscan because he does not seem like he can walk very far on the treadmill. However, I have found out now that he is on flecainide and that could be slowing his heart rate. He is on flecainide. He has an intraventricular conduction delay but he does not have a significantly w idened QRS to think that the flecainide is making him toxic at this point in time. His renal functio n is a little bit diminished and this is something we can watch. At this time he wants to continue the medications he is on and have us continue to look and see if th ere is some reason he was dizzy and if not, then he wants to leave. We have talked from prevention p oint of view of significant exercise effort and he said he would like to do that and significant losi ng weight effort and he would like to do that as well and he will follow up with his own contact center professional . CONCLUSION: 1. We need him to lose weight and increase his exercise. 2. He has no interest in any pacemaker right now so we will watch him and see how he does. 3. He is on flecainide and flecainide has a more toxic affect at higher heart rate and that is not a problem for him. 4. He does not want to stop flecainide at this point in time, so that might make him feel a little b it better, it might bring his heart rate up a little bit, but he wants to continue doing what he is d laurie for now. 5. So far, his echocardiographic study shows no significant pathology from a cardiovascular point of view. He can be monitored for another 24 hours and see how he does and then he will follow up with his contact center professional. /[id number]/MODL
--- NOTE | 2017-07-04 15:20 | ASMTCMCOM ---
CM Note CM Note Notes: PT has cleared pt to d/c home independent. No identified needs at this time. CM available for changes. Plan: Independent Date Signed: 07/04/2017 03:19 PM Electronically Signed By:MARIA G Mclaughlin
--- NOTE | 2017-07-04 15:20 | ASMTLACE ---
LACE Length of stay for Answers: 1 day current admission Acuity / Level of Answers: Yes Care: Did the patient have an inpatient admission? Comorbidities - select Answers: Diabetes (uncontrolled or all that apply controlled) Other Notes: Hx of atrial fibrillati on # of Emergency department Answers: 1-2 visits in the last 6 months Score: 7 Date Signed: 07/04/2017 03:20 PM Electronically Signed By:MARIA G Mclaughlin
[2017-07-04] MEDS ORDERED: WARFARIN SODIUM 5 MG TAB PO SCH (16:00)
--- NOTE | 2017-07-04 22:06 | PDDCSUM ---
Discharge Summary Discharge Summary: DISCHARGE SUMMARY FOLLOW-UP ITEMS: Repeat Cr, BUN, lytes, PT/INR 07/07/17 DATE OF ADMISSION: 07/03/17 DATE OF DISCHARGE: 07/04/17 DISCHARGE DIAGNOSES: 1. Acute lightheadedness 2. Acute hyperkalemia 3. CKD Stage III 4. DM2 w/ hyperglycemia 5. Chronic Hypertension 6. Sinus bradycardia CONSULTATIONS: Cardiology PROCEDURES / IMAGING: Echo with diastolic dysfunction, preserved EF, no significant valvular issues CUS w/o flow limiting stenosis CHIEF COMPLAINT: Dizziness/Lightheadedness SUBJECTIVE: Asymptomatic at time of discharge, no recurrent symptoms PHYSICAL EXAM ON DISCHARGE: SBP 120-150, HR 40-50, sat > 90% on room air, heart rhythm regular w/o significant MRG, lungs CTA bilat, trace bilat LE edema LABS: K 4.7, Cr 1.4, Na 139, Hgb 15, WBC 6,000, INR 1.6, Trop neg x 3, FeNa 3.1% HOSPITAL COURSE BY PROBLEM: 1. Lightheadedness. Acute, unclear etiology, possibly 2/2 mild dehydration w/ elevated BUN and recent low PO intake. Resolved s/p IVF. No e/o arrhythmias on tele. Patient to consider outpatient 30-day event monitor through Dr. Colon. PT recommended outpatient PT, and patient will arrange. 2. Acute hyperkalemia. Likely 2/2 mild dehydration in setting of CKD and impaired clearance, w/ concomitant use of ARB. Held ARB, gave NS, then IV lasix , w/ good effect. As noted above, no arrhythmias on tele. Cont to hold ARB at discharge, repeat labs next Friday, recommend his primary provider consider alternative agent for BP mgmt. 3. Chronic Kidney Disease Stage III. Reviewed patient's prior lab history and his Cr runs 1.3-1.5, occasionally higher during acute illness. He has been on an ARB to preserve GFR, but he may not be tolerating this from a hyperkalemia standpoint. Recommended patient hold ARB, repeat labs, and get outpatient Renal consultation and establishment of care for ongoing CKD mgmt. His FeNa 3.1%, indicating intrinsic renal disease. 4. DM2 w/ hyperglycemia. Appears uncontrolled prior to holding metformin, recommended holding metformin given CKD, recommend he follow-up closely w/ Dr. Zhu to establish insulin. 5. Sinus bradycardia. Patient was seen by Dr. Machado, and he determined that the patient is not hypotensive w/ his paradise, and is currently asymptomatic despite ongoing paradise, so it is unlikely that a sinus bradycardiac caused his sx. That said, patient will f/u Dr. Colon and consider outpatient rhythm monitoring. DISCHARGE MEDICATIONS: Please see official discharge medication reconciliation sheet in chart, hold losartan/metformin, continue other Rx. DISCHARGE INSTRUCTIONS: Please follow-up at [facility], w/ Dr. Zhu, and PCP in short-term.
[2017-07-06] MEDS ORDERED: WARFARIN SODIUM 5 MG TAB PO SCH (16:00)
== END 2017-07-04 15:55 | disposition home or self-care (01) | DRG 149 ==
LOC: INTOOBSV 17:07 → OBSVTOIN 17:07 → F2W 18:15
PROVIDERS: ADMIT Family Medicine; ATTEND Family Medicine
DX: R42 Dizziness and giddiness (principal); E87.5 Hyperkalemia; E86.0 Dehydration; R00.1 Bradycardia, unspecified; E11.22 Type 2 diabetes mellitus with diabetic chronic kidney disease; I12.9 Hypertensive chronic kidney disease with stage 1 through stage 4 chronic kidney disease, or unspecified chronic kidney disease; N18.3 Chronic kidney disease, stage 3 (moderate); E11.65 Type 2 diabetes mellitus with hyperglycemia; J96.11 Chronic respiratory failure with hypoxia; E66.9 Obesity, unspecified; Z79.4 Long term (current) use of insulin; Z99.81 Dependence on supplemental oxygen; Z66 Do not resuscitate; Z68.37 Body mass index [BMI] 37.0-37.9, adult
CPT/HCPCS: 96365; 96366; 97161-GP; G8978-GP-CH; G8979-GP-CH; G8980-GP-CH; J0610; J1815; J1940; J3475

== ENCOUNTER → 2017-08-29 | Outpatient (CLI) | payer OTHER | LOC: FIMAGING 07:53 | PROVIDERS: ATTEND Psychiatry & Neurology Neurology | DX: G31.9 Degenerative disease of nervous system, unspecified (principal); R41.3 Other amnesia; E11.9 Type 2 diabetes mellitus without complications; I48.0 Paroxysmal atrial fibrillation ==

== ENCOUNTER 2017-12-25 17:38 | Inpatient (IN) | payer OTHER ==
[2017-12-25] MEDS ORDERED: NS 1,000 ML IV ONE ×2 (18:19→19:19)
[2017-12-25] MEDS ORDERED: D50W 25 GM/50 ML SYR IVP PRN (18:19)
[2017-12-25] MEDS ORDERED: INSULIN REGULAR HUMAN 100 UNIT, COSIGN. REQUIRED 1 EA in NS 100 ML IV ONE (18:19)
[2017-12-25] MEDS ORDERED: D10W 1,000 ML IV SCH (18:19)
--- NOTE | 2017-12-25 18:23 | EDPHY ---
H & P Time Seen by Provider: 12/25/17 17:56 HPI/ROS: Chief complaint. Feeling rotten HPI. 72-year-old male presents emergency department with 3 weeks of feeling low energy. Slight shortness of breath. No chest pain. No abdominal pain occasional diarrhea. No fever. He has been shaky and thirsty. He tells me said poorly controlled diabetes for 10 months and sees [facility] [employer]. Labs in the office today showed a creatinine of 3.1 and it was 1.8 on 12/19. The BUN was 113 and was 6 on 12/19. Sodium 127, potassium was 5.8. Glucose was 532 ROS 10 systems were reviewed and negative with the exception of the elements mentioned in the history of present illness Past Medical/Surgical History: Past medical history diabetes, atrial fibrillation, gout, hypertension, hip surgery, BiPAP 4 L Social History: , nonsmoker, no alcohol Smoking Status: Never smoked Physical Exam: General Appearance: Alert well-developed male moderate distress vital signs show heart rate 55, blood pressure 130/63 Eyes: Pupils equal and round no pallor or injection. ENT, mucous membranes are dry Respiratory: There are no retractions, lungs are clear to auscultation. Cardiovascular: Regular rate and rhythm. Gastrointestinal: Abdomen is soft and nontender, no masses, bowel sounds normal. Neurological: Awake and alert, sensory and motor exams grossly normal. Skin: Warm and dry, no rashes. Musculoskeletal: Neck is supple nontender. Extremities symmetrical, full range of motion. Psychiatric: Patient is oriented X 3, there is no agitation. Constitutional: Initial Vital Signs Heart Rate 55 L 12/25/17 17:43 Respiratory Rate 16 12/25/17 17:43 Blood Pressure 130/63 H 12/25/17 17:43 O2 Sat (%) 93 12/25/17 17:43 O2 Delivery Mode Room Air Allergies/Adverse Reactions: levofloxacin [From Levaquin] Allergy (Verified 12/25/17 17:43) Other-Enter Comments Home Medications: Medication Instructions Recorded Flecainide Acetate [Tambocor] 100 mg PO BIDMEAL 09/03/11 Aspirin EC [Aspirin EC 81 mg (*)] 81 mg PO DAILY 05/24/13 Pravastatin Sodium 20 mg PO HS 05/24/13 Pat[place]-3 Fatty Acids [Fish Oil 1000 1,000 mg PO TID 07/19/15 mg (*)] Allopurinol [Allopurinol 100 MG 100 mg PO BID 03/10/16 (*)] Herbals/Supplements -Info Only 1 ea PO DAILY 03/10/16 Insulin Detemir [Levemir] 40 unit SQ BID 07/03/17 Insulin Lispro [Humalog] 25 unit SQ DAILY@12 07/03/17 Insulin Lispro [Humalog] 40 unit SQ BID 07/03/17 Warfarin Sodium [Coumadin 5MG (*)] 5 mg PO DOWNING@07/03/17 Warfarin Sodium [Coumadin 5MG (*)] 7.5 mg PO MOTUWETHFRSA@07/03/17 Medical Decision Making - Diagnostics EKG Interpretation: EKG interpreted by me shows normal sinus rhythm normal interval. Left axis deviation. Mild interventricular conduction delay. No significant ST elevation or depression. No arrhythmia. The rate is 60 Imaging Results: Imaging Impressions Chest X-Ray 12/25/17 18:19 Impression: Moderate cardiac enlargement, without acute cardiopulmonary abnormality. Procedures: IV normal saline, monitor. Point of care testing, insulin drip ED Course/Re-evaluation: At about 7:05 p.m. Patient had a choking episode after drinking water. He dropped his oxygen saturation to about 75%. Between sitting up, suction, supplemental oxygen the choking episode resolved in 2-3 minutes. He is now speaking normally. He tells me that he has been having increased choking with water in food over the past year I consulted discussed the case with Dr. Ireland who agrees with insulin drip. He agrees to the admission Patient and I discussed imaging EKG and lab results. We discussed treatment plan including recommendation for admission. He expresses understanding and agreement Differential Diagnosis: Patient is in DKA by laboratory evaluation including elevated blood sugar, acidosis, increased anion gap. He also has a UTI. He has acute renal failure. - Data Points Laboratory Results: Laboratory Results 12/25/17 18:06 12/25/17 18:06 12/25/17 12/25/17 12/25/17 18:49 18:48 18:13 WBC RBC Hgb POC Hgb 17.3 gm/dL gm/dL (13.7-17.5) Hct POC Hct 51 % % (40-51) MCV MCH MCHC RDW Plt Count MPV Neut % (Auto) Lymph % (Auto) [place] % (Auto) Eos % (Auto) Baso % (Auto) Nucleat RBC Rel Count Absolute Neuts (auto) Absolute Lymphs (auto) Absolute Monos (auto) Absolute Eos (auto) Absolute Basos (auto) Absolute Nucleated RBC Immature Gran % Immature Gran # Puncture Site Not Reported Patient Temperature 37.0 DEGREES DEGREES VBG pH 7.30 L (7.31-7.42) VBG HCO3 17 mEQ/L L mEQ/L (22-26) VBG Total CO2 18 mEq/L L mEq/L (21-27) VBG O2 Saturation 86 % H % (65-75) VBG Base Excess -8.3 mEq/L L mEq/L (-2.5-2.5) Mixed VBG pCO2 35 mmHg L mmHg (40-44) Mixed VBG pO2 55 mmHG H mmHG (35-40) POC Sodium 130 mEq/L L mEq/L (135-145) Sodium POC Potassium 4.9 mEq/L mEq/L (3.3-5.0) Potassium POC Chloride 100 mEq/L mEq/L (97-110) Chloride Carbon Dioxide Anion Gap POC BUN 119 mg/dL H* mg/dL (7-23) BUN Creatinine POC Creatinine 2.9 mg/dL H mg/dL (0.7-1.3) Estimated GFR Glucose POC Glucose 455 mg/dL H mg/dL (70-100) Calcium Phosphorus Magnesium POC Troponin I 0.01 ng/mL ng/mL (0.00-0.08) Lipase Beta-Hydroxybutyrate 12/25/17 12/25/17 18:06 18:06 WBC 6.34 10^3/uL 10^3/uL (3.80-9.50) RBC 5.20 10^6/uL 10^6/uL (4.40-6.38) Hgb 15.6 g/dL g/dL (13.7-17.5) POC Hgb Hct 45.7 % % (40.0-51.0) POC Hct MCV 87.9 fL fL (81.5-99.8) MCH 30.0 pg pg (27.9-34.1) MCHC 34.1 g/dL g/dL (32.4-36.7) RDW 14.5 % % (11.5-15.2) Plt Count 189 10^3/uL 10^3/uL (150-400) MPV 11.2 fL fL (8.7-11.7) Neut % (Auto) Not Reported Lymph % (Auto) Not Reported [place] % (Auto) Not Reported Eos % (Auto) Not Reported Baso % (Auto) Not Reported Nucleat RBC Rel Count Not Reported Absolute Neuts (auto) Not Reported Absolute Lymphs (auto) Not Reported Absolute Monos (auto) Not Reported Absolute Eos (auto) Not Reported Absolute Basos (auto) Not Reported Absolute Nucleated RBC Not Reported Immature Gran % Not Reported Immature Gran # Not Reported Puncture Site Patient Temperature VBG pH VBG HCO3 VBG Total CO2 VBG O2 Saturation VBG Base Excess Mixed VBG pCO2 Mixed VBG pO2 POC Sodium Sodium 129 mEq/L L mEq/L (135-145) POC Potassium Potassium 5.1 mEq/L H mEq/L (3.3-5.0) POC Chloride Chloride 97 mEq/L mEq/L (97-110) Carbon Dioxide 17 mEq/l L mEq/l (22-31) Anion Gap 15 mEq/L H mEq/L (6-14) POC BUN BUN Pending Creatinine 2.9 mg/dL H mg/dL (0.7-1.3) POC Creatinine Estimated GFR 22 Glucose 461 mg/dL H mg/dL (70-100) POC Glucose Calcium 8.8 mg/dL mg/dL (8.5-10.4) Phosphorus 5.2 mg/dL H mg/dL (2.5-4.5) Magnesium 2.2 mg/dL mg/dL (1.6-2.3) POC Troponin I Lipase 396 IU/L H IU/L (23-300) Beta-Hydroxybutyrate 0.11 mmol/L mmol/L (0.02-0.27) Medications Given: Sodium Chloride (Ns) 1,000 mls @ 1,000 mls/hr IV EDNOW ONE PRN Reason: Protocol Stop: 12/25/17 19:18 Last Admin: 12/25/17 18:36 Dose: Not Given Discontinued Medications Sodium Chloride (Ns) 1,000 mls @ 0 mls/hr IV EDNOW ONE; Wide Open PRN Reason: Protocol Stop: 12/25/17 18:20 Last Admin: 12/25/17 18:35 Dose: 1,000 mls Point of Care Test Results: Chemistry 12/25/17 12/25/17 18:49 18:13 POC Sodium 130 mEq/L L mEq/L (135-145) POC Potassium 4.9 mEq/L mEq/L (3.3-5.0) POC Chloride 100 mEq/L mEq/L (97-110) POC BUN 119 mg/dL H* mg/dL (7-23) POC Creatinine 2.9 mg/dL H mg/dL (0.7-1.3) POC Glucose 455 mg/dL H mg/dL (70-100) POC Troponin I 0.01 ng/mL ng/mL (0.00-0.08) ISTAT H&H 12/25/17 18:13 POC Hgb 17.3 gm/dL gm/dL (13.7-17.5) POC Hct 51 % % (40-51) Departure - Departure Disposition: [facility] Inpatient Acute Clinical Impression: Urinary tract infection Qualifiers: Urinary tract infection type: site unspecified Hematuria presence: without hematuria Qualified Code(s): N39.0 - Urinary tract infection, site not specified DKA (diabetic ketoacidoses) Qualifiers: Diabetes mellitus type: other specified (including VERONIKA) Diabetes mellitus complication detail: without coma Qualified Code(s): E13.10 - Other specified diabetes mellitus with ketoacidosis without coma Renal failure (ARF), acute on chronic Qualifiers: Acute renal failure type: unspecified Chronic kidney disease stage: unspecified stage Qualified Code(s): N17.9 - Acute kidney failure, unspecified; N18.9 - Chronic kidney disease, unspecified; N18.9 - Chronic kidney disease, unspecified Condition: Fair Referrals: Mary Garza MD [Primary Care Provider] - As per Instructions
[2017-12-25 18:26] LABS: PLATELET COUNT 189 10^3/uL (150-400)
[2017-12-25] MEDS: NS 1,000 ML IV ONE ×2 (18:34→18:35)
[2017-12-25] MEDS ORDERED: PROMETHAZINE HCL 25 MG/ML INJ IVP PRN (19:12)
[2017-12-25] MEDS ORDERED: ONDANSETRON DISINTEGRATING 4 MG TAB PO PRN (19:12)
[2017-12-25] MEDS ORDERED: PROMETHAZINE HCL 25 MG TAB PO PRN (19:12)
[2017-12-25] MEDS ORDERED: ONDANSETRON 4 MG/2 ML VIAL IVP PRN (19:12)
[2017-12-25] MEDS ORDERED: NS 1,000 ML IV SCH ×2 (19:15→22:19)
--- NOTE | 2017-12-25 19:24 | CPEKG ---
Test Reason : OPEN Blood Pressure : / mmHG Vent. Rate : 060 BPM Atrial Rate : 059 BPM P-R Int : 243 ms QRS Dur : 118 ms QT Int : 462 ms P-R-T Axes : 040 -27 039 degrees QTc Int : 462 ms Sinus rhythm Prolonged IA interval Nonspecific intraventricular conduction delay Confirmed by Paul Wolfe ([id number]) on 12/25/2017 7:24:06 PM Referred By: Confirmed By:Paul Wolfe
--- NOTE | 2017-12-25 20:01 | PDGENHP ---
History and Physical - Chief Complaint Acute malaise - History of Present Illness Primary care provider: Dr. Garza Primary desktop specialist:Dr. Ruiz Primary blueprint duplicator: Dr. Colon Primary undercover agent: Dr. Henriquez HPI: 72-year-old male presents with acutely worsening general malaise which 1st began approximately 3 weeks ago and has been associated with some shortness of breath, tremulousness, polydipsia, and resulted in evaluation as primary care provider office today which revealed a creatinine of 3.1 and a glucose of around 400. The patient reports that his glucoses averaged around 400 for the past 10 months and he has been titrating his insulin 70/30 with his primary undercover agent, most recently up titrating to 60 units twice daily approximately 4 weeks ago. He reports that over this interval he has also had a dry cough and he has chronically been experiencing liquid dysphagia for the past several months. He otherwise denies any chest pain or any other clearly identifiable precipitating events 3 weeks ago. He reports he has been adherent to his insulin as well as his home medications. He reports that he has recently been initiated on NIK-inhibitor. History Information - Allergies/Home Medication List Allergies/Adverse Reactions: levofloxacin [From Levaquin] Allergy (Verified 12/25/17 19:35) Other-Enter Comments Home Medications: Flecainide Acetate [Tambocor] 100 mg PO BIDMEAL 09/03/11 [Last Taken 12/24/17] Aspirin EC [Aspirin EC 81 mg (*)] 81 mg PO DAILY 05/24/13 [Last Taken 12/24/17] Pravastatin Sodium 10 mg PO HS 05/24/13 [Last Taken 12/24/17] [place]-3 Fatty Acids [Fish Oil 1000 mg (*)] 1,000 mg PO TID 07/19/15 [Last Taken 12/24/17] Allopurinol [Allopurinol 100 MG (*)] 100 mg PO BID 03/10/16 [Last Taken 12/24/17 ] Herbals/Supplements -Info Only 1 ea PO DAILY 03/10/16 [Last Taken 12/24/17] Furosemide [Lasix 20 MG (*)] 20 mg PO BID 12/25/17 [Last Taken 12/24/17] Insulin Aspart Novolog 70/30 [NovoLOG MIX 70/30 VIAL] 60 unit SC BIDAC 12/25/17 [Last Taken Unknown] Lisinopril [Zestril 20 mg (*)] 20 mg PO DAILY 12/25/17 [Last Taken 12/24/17] Warfarin Sodium [Coumadin 5MG (*)] 5 mg PO TUSA@16 12/25/17 [Last Taken 12/23/17 ] Warfarin Sodium [Coumadin 5MG (*)] 7.5 mg PO SUMOWETHFR@16 12/25/17 [Last Taken 12/24/17] I have personally reviewed and updated: family history, medical history, social history, surgical history - Past Medical History diabetes type 2 (Insulin-dependent) Additional medical history: Chronic kidney disease stage 3 with baseline creatinine 1.3-1.5, most recently 1.8 in the outpatient setting. Chronic hypoxic respiratory failure, utilizing 4 L nasal cannula with activity. Gout. Paroxysmal atrial fibrillation - Surgical History Additional surgical history: Left hip surgery. Left shoulder surgery. Foot surgery - Family History Additional family history: Coronary artery disease in his parents - Social History Smoking Status: Never smoked Alcohol Use: None Drug Use: None Additional social history: Independent in his ADLs Review of Systems Review of Systems: ROS: 10pt was reviewed & negative except for what was stated in HPI & below Constitutional: Reports: chills, malaise Respiratory: Reports: cough, shortness of breath Genitourinary: Reports: hematuria (5 weeks ago) Physical Exam Physical Exam: Temp Pulse Resp BP Pulse Ox 36.4 C 59 L 18 123/55 H 91 L 12/25/17 18:39 12/25/17 18:39 12/25/17 18:39 12/25/17 18:39 12/25/17 18:39 Constitutional: not in pain, chronically ill appearing, obese, No uncomfortable Eyes: PERRL, anicteric sclera, EOMI Ears, Nose, Mouth, Throat: hearing normal, other (Tacky mucous membranes) Cardiovascular: regular rate and rhythym, no murmur, rub, or gallop (Distant heart sounds), edema (Trace bilateral lower extremity) Respiratory: reduced air movement (Right base), inspiratory crackles (Right base ), No expiratory wheeze, No bronchial breath sounds, No respiratory distress Gastrointestinal: normoactive bowel sounds, distension (Moderate), No tenderness , No guarding Genitourinary: no bladder fullness, no bladder tenderness Neurologic: AAOx3, sensation intact bilaterally, No weakness (Motor strength 5/ 5 bilateral lower extremities) Psychiatric: interacting appropriately, not anxious, not encephalopathic, thought process linear Lymph, Heme, Immunologic: other (Palpable 2 cm bilateral submandibular lymph nodes without any tenderness) Lab Data & Imaging Review 12/25/17 18:06 12/25/17 18:06 WBC 6.34 10^3/uL (3.80-9.50) 12/25/17 18: RBC 5.20 10^6/uL (4.40-6.38) 12/25/17 18: Hgb 15.6 g/dL (13.7-17.5) 12/25/17 18: POC Hgb 17.3 gm/dL (13.7-17.5) 12/25/17 18:13 Hct 45.7 % (40.0-51.0) 12/25/17 18: POC Hct 51 % (40-51) 12/25/17 18:13 MCV 87.9 fL (81.5-99.8) 12/25/17 18: MCH 30.0 pg (27.9-34.1) 12/25/17 18: MCHC 34.1 g/dL (32.4-36.7) 12/25/17 18: RDW 14.5 % (11.5-15.2) 12/25/17 18:06 Plt Count 189 10^3/uL (150-400) 12/25/17 18: MPV 11.2 fL (8.7-11.7) 12/25/17 18: Neut % (Auto) Not Reported 12/25/17 18: Lymph % (Auto) Not Reported 12/25/17 18:06 [place] % (Auto) Not Reported 12/25/17 18:06 Eos % (Auto) Not Reported 12/25/17 18: Baso % (Auto) Not Reported 12/25/17 18: Nucleat RBC Rel Count Not Reported 12/25/17 18: Absolute Neuts (auto) Not Reported 12/25/17 18: Absolute Lymphs (auto) Not Reported 12/25/17 18: Absolute Monos (auto) Not Reported 12/25/17 18:06 Absolute Eos (auto) Not Reported 12/25/17 18:06 Absolute Basos (auto) Not Reported 12/25/17 18:06 Absolute Nucleated RBC Not Reported 12/25/17 18:06 Immature Gran % Not Reported 12/25/17 18:06 Immature Gran # Not Reported 12/25/17 18:06 Puncture Site Not Reported 12/25/17 18:48 Patient Temperature 37.0 DEGREES 12/25/17 18:48 VBG pH 7.30 (7.31-7.42) L 12/25/17 18:48 VBG HCO3 17 mEQ/L (22-26) L 12/25/17 18:48 VBG Total CO2 18 mEq/L (21-27) L 12/25/17 18:48 VBG O2 Saturation 86 % (65-75) H 12/25/17 18:48 VBG Base Excess -8.3 mEq/L (-2.5-2.5) L 12/25/17 18:48 Mixed VBG pCO2 35 mmHg (40-44) L 12/25/17 18:48 Mixed VBG pO2 55 mmHG (35-40) H 12/25/17 18:48 POC Sodium 130 mEq/L (135-145) L 12/25/17 18:13 Sodium 129 mEq/L (135-145) L 12/25/17 18:06 POC Potassium 4.9 mEq/L (3.3-5.0) 12/25/17 18:13 Potassium 5.1 mEq/L (3.3-5.0) H 12/25/17 18:06 POC Chloride 100 mEq/L (97-110) 12/25/17 18:13 Chloride 97 mEq/L (97-110) 12/25/17 18:06 Carbon Dioxide 17 mEq/l (22-31) L 12/25/17 18:06 Anion Gap 15 mEq/L (6-14) H 12/25/17 18:06 POC BUN 119 mg/dL (7-23) H* 12/25/17 18:13 BUN 113 mg/dL (7-23) H* 12/25/17 18:06 Creatinine 2.9 mg/dL (0.7-1.3) H 12/25/17 18:06 POC Creatinine 2.9 mg/dL (0.7-1.3) H 12/25/17 18:13 Estimated GFR 22 12/25/17 18:06 Glucose 461 mg/dL (70-100) H 12/25/17 18:06 POC Glucose 455 mg/dL (70-100) H 12/25/17 18:13 Calcium 8.8 mg/dL (8.5-10.4) 12/25/17 18:06 Phosphorus 5.2 mg/dL (2.5-4.5) H 12/25/17 18:06 Magnesium 2.2 mg/dL (1.6-2.3) 12/25/17 18:06 POC Troponin I 0.01 ng/mL (0.00-0.08) 12/25/17 18:49 Lipase 396 IU/L (23-300) H 12/25/17 18:06 Beta-Hydroxybutyrate 0.11 mmol/L (0.02-0.27) 12/25/17 18:06 Chest X-Ray results: no infiltrate Visualized and Interpreted EKG results: Yes EKG Interpretation: Positive for: other (Normal sinus rhythm with Q-wave in lead 3, poor R-wave progression in lead V2 and V3) Assessment & Plan Assessment: 72-year-old male presents with diabetic ketoacidosis complicated by acute kidney injury on chronic kidney disease stage 3 Plan: 1. DKA. Acute, evidenced by glucose level of 460, venous pH 7.3, anion gap of 15, serum bicarbonate 17, unclear whether this has resulted from chronically uncontrolled hyperglycemia and subsequent acidosis with hypovolemia verses secondary to infectious precipitant -does the most likely cause of his general discomfort and malaise -discussed with Dr. Paul Wolfe, we agree the patient should be placed on insulin drip and cared for in the ICU -DKA protocol ordered, continue normal saline at 200 an hour until fluid adjustments required -monitor labs closely -will most likely require up titration of his insulin 70/30 long-acting insulin is re-initiated 2. Possible urinary tract infection. Urinalysis from primary care provider office demonstrates possible UTI, generalized symptoms could be secondary to underlying infection -given ceftriaxone emergency department given his DKA, continue -urine culture sent 3. Acute metabolic acidosis. Secondary to DKA, continue monitor serum bicarbonate level 4. Acute kidney injury on chronic kidney disease stage 3. Most likely secondary to hypovolemia in the setting of DKA as well as NIK-inhibitor affect -continue normal saline, monitor creatinine level -monitor urine output -hold NIK-inhibitor, hold diuretic 5. Atrial fibrillation. Paroxysmal, monitor on telemetry 6. Chronic hypoxic respiratory failure. Continue home supplemental oxygen 7. Dysphagia. Acute on chronic, patient had a witnessed aspiration episode in the emergency department when he drinks some water -get [employer]IP eval and VFSS in a.m. -repeat chest x-ray to ensure no aspiration pneumonia given physical exam findings 8. Morbid obesity. BMI 36, increased risk of worsening morbidity and/or mortality Diet. NPO with IV fluids Prophylaxis. High risk patient, heparin subcu Code. Full Disposition. Anticipated discharge uncertain this time, anticipated length stay is greater than 48 hr for reasonable medical necessity including DKA, acute kidney injury on chronic kidney disease, requiring ICU level care. Patient is critically ill with high risk for worsening morbidity and/or mortality secondary to the issues outlined above, I spent 35 min of critical care time at bedside with patient, coordinating of the above care, as well as specifically treating his DKA.
[2017-12-25] MEDS ORDERED: NS 500 ML IV ONE ×2 (20:19→21:19)
[2017-12-25] MEDS ORDERED: INSULIN REGULAR HUMAN 100 UNIT in NS 100 ML IV SCH (22:30)
[2017-12-25 22:50] LABS: INR 1.95 (0.83-1.16); PROTIME(PATIENT) 22.3 SEC (12.0-15.0)
[2017-12-25] MEDS: HEPARIN 5,000 UNIT/0.5 ML INJ SC SCH (23:35)
[2017-12-25] MEDS: OMEGA-3 FATTY ACIDS 1,000 MG CAP PO SCH (23:36)
[2017-12-25] MEDS: ACETAMINOPHEN 325 MG TAB PO PRN (23:36)
[2017-12-26] MEDS: PRAVASTATIN SODIUM 10 MG TAB PO SCH ×2 (02:16→22:16)
[2017-12-26] MEDS: CEPACOL LOZENGE PO PRN ×4 (03:03→21:32)
[2017-12-26] MEDS ORDERED: PROTOCOL POTASSIUM 1 DOSE MISC PRN ×2 (03:31)
[2017-12-26] MEDS: ACETAMINOPHEN 325 MG TAB PO PRN (03:49)
[2017-12-26 05:07] LABS: PLATELET COUNT 168 10^3/uL (150-400)
[2017-12-26] MEDS ORDERED: D50W 25 GM/50 ML VIAL IVP PRN (05:15)
[2017-12-26 05:18] LABS: INR 1.96 (0.83-1.16); PROTIME(PATIENT) 22.4 SEC (12.0-15.0)
[2017-12-26] MEDS: INSULIN 70/30 HUMAN 100 UNIT/ML SYR SC SCH ×2 (05:47→18:27)
[2017-12-26] MEDS: HEPARIN 5,000 UNIT/0.5 ML INJ SC SCH ×3 (05:48→21:32)
[2017-12-26] MEDS: FLECAINIDE ACETATE 100 MG TAB PO SCH ×2 (08:00→18:09)
[2017-12-26] MEDS: ASPIRIN EC 81 MG TAB PO SCH (08:00)
[2017-12-26] MEDS: OMEGA-3 FATTY ACIDS 1,000 MG CAP PO SCH ×3 (08:00→21:32)
[2017-12-26] MEDS ORDERED: Herbals/Supplements -Info Only PO SCH (09:00)
[2017-12-26] MEDS ORDERED: D50W 25 GM/50 ML SYR IVP PRN (09:16)
--- NOTE | 2017-12-26 09:19 | PDMN ---
Medical Necessity Medical necessity: [facility] M130 Diabetes A-2 days: DKA generalized malaise X 3 weeks, SOB, tremulousness, polydipsia, cough, liquid dysphagia for the past several months, Cr. 3.1, glucose 460, Kristin pH 7.3, anion gap 15., serum bicarb 17,acute metabolic acidosis, PMHx chronic kidney disease stage 3 baseline Cr 1.3-1.5, chronic hypoxic resp failure 4 L with activity, Gout, Paroxysmal a fib., morbid obesity- - pt also with poss UTI, anticipate > 2 MN ongoing med nec. care further eval , monitoring and tx.
--- NOTE | 2017-12-26 09:48 | ASMTCASEMG ---
Living Arrangements What is your living Answers: Alone arrangement? Who do you live with? Type Of Residence What kind of residence do Answers: Apartment you live in? Discharge Plan Comments Coordination Status Comments Notes: Patient is a 72yo male who presents with diabetic ketoacidosis complicated by acute kidney injury on chronic kidney disease stage 3. 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 Patient would like assistance with advanced directives. He has a daughter Zayra ([phone]) and a sister, Saskia Paredes. D/C plan TBD. CM will follow. Date Signed: 12/26/2017 09:47 AM Electronically Signed By:Heidi Kothari LCSW
--- NOTE | 2017-12-26 10:50 | HOSPPROG ---
Hospitalist Progress Note Assessment/Plan: 72-year-old M with difficult to control diabetes, CKD presents with mild DKA and VIKRAM likely in setting of urinary infection. #DKA: Mild, resolved. Off insulin gtt, transitioned back to home subq 70/30. Added high dose SSI with regular BG checks. He follows with endocrinology. #Recurrent UTI: Likely precipitated above. Minimal urinary sxs. Had Klebsiella UTI 08/2017 (unknown antibiotics), Klebsiella UTI 09/2017 tx'd with keflex, then ESBL Klebsiella UTI 10/2017 treated with cipro. Currently afebrile, not septic. Continue CTX, will discuss antibiotic selection with ID given recurrence. #VIKRAM: Improving with IVF. Cr 2.9->2.1, baseline 1.2-1.4. Renally dose meds. #Atrial fibrillation: Currently NSR. Continue home flecainide, warfarin and monitor INR. #Dysphagia: Eval'd by [facility], cleared for normal diet. Referral for outpatient video swallow study. Consider adding H2RA. #Chronic respiratory insufficiency: On home O2. #Obesity: BMI 36 Diet: carb controlled VTE ppx: SQH Code: full Dispo: Remain inpatient, transfer to med/surg. Subjective: Feeling much better. Not as lethargic. No urinary sxs. No fevers. He is curious about continuing some of his home meds. Objective: Vital Signs Temp Pulse Resp BP Pulse Ox 36.6 C 61 18 124/57 H 97 12/26/17 07:21 12/26/17 10:00 12/26/17 10:00 12/26/17 10:00 12/26/17 10:00 Laboratory Results 12/26/17 04:50 12/26/17 04:50 12/25/17 12/26/17 12/27/17 05:59 05:59 05:59 Intake Total 3139 Output Total 1500 400 Balance 1639 -400 PT 22.4 SEC (12.0-15.0) H 12/26/17 04:50 INR 1.96 (0.83-1.16) H 12/26/17 04:50 - Physical Exam Constitutional: no apparent distress, appears nourished, not in pain, obese Eyes: PERRL, anicteric sclera, EOMI Ears, Nose, Mouth, Throat: moist mucous membranes, hearing normal, ears appear normal, no oral mucosal ulcers Cardiovascular: regular rate and rhythym, no murmur, rub, or gallop Respiratory: no respiratory distress, no rales or rhonchi, clear to auscultation Gastrointestinal: normoactive bowel sounds, soft, non-tender abdomen, no palpable masses Genitourinary: No duron in urethra Skin: no rashes or abrasions, no fluctuance, no induration Musculoskeletal: full muscle strength, no muscle tenderness, normal joint ROM Neurologic: AAOx3, sensation intact bilaterally Psychiatric: interacting appropriately, not anxious, not encephalopathic, thought process linear ICD10 Worksheet Patient Problems: Problems Problem Status Onset DKA (diabetic ketoacidoses) Acute Renal failure (ARF), acute on chronic Acute Urinary tract infection Acute Atrial fibrillation Acute Bradycardia Acute C. difficile diarrhea Acute 08/05/14 Chest pain Acute Chest pain at rest Acute Dizziness Acute Hyperkalemia Acute Laceration Acute Primary osteoarthritis of left hip Acute Renal insufficiency Acute
[2017-12-26] MEDS: ALLOPURINOL 100 MG TAB PO SCH (11:49)
[2017-12-26] MEDS: INSULIN LISPRO 100 UNIT/ML SC SCH ×2 (11:50→18:09)
[2017-12-26] MEDS: WARFARIN SODIUM 7.5 MG TAB PO SCH (16:41)
[2017-12-26] MEDS ORDERED: INSULIN LISPRO 100 UNIT/ML SC ONE (22:15)
[2017-12-27] MEDS: HEPARIN 5,000 UNIT/0.5 ML INJ SC SCH ×2 (05:54→13:11)
[2017-12-27] MEDS: ASPIRIN EC 81 MG TAB PO SCH (09:21)
[2017-12-27] MEDS: FLECAINIDE ACETATE 100 MG TAB PO SCH ×2 (09:22→18:04)
[2017-12-27] MEDS: OMEGA-3 FATTY ACIDS 1,000 MG CAP PO SCH ×3 (09:22→21:18)
[2017-12-27] MEDS: ALLOPURINOL 100 MG TAB PO SCH (09:22)
[2017-12-27] MEDS: INSULIN LISPRO 100 UNIT/ML SC SCH ×4 (09:29→21:17)
[2017-12-27] MEDS: INSULIN 70/30 HUMAN 100 UNIT/ML SYR SC SCH ×2 (09:29→17:42)
--- NOTE | 2017-12-27 15:56 | HOSPPROG ---
Hospitalist Progress Note Assessment/Plan: Subjective Follow-up on diabetic ketoacidosis, acute kidney injury, and suspected urinary tract infection. Patient states he was not having any burning with urination or cloudy urine prior to coming into the hospital. Otherwise no acute events overnight. We discussed his creatinine value which is improving but not quite at its baseline. We discussed that we continue IV fluids for another 24 hr. Objective Vital signs as detailed below Exam General-awake alert conversant no acute distress, obese Heart-regular rate and rhythm no murmurs Lungs-Clear to auscultation with normal respiratory effort Abdomen-soft nontender nondistended normal bowel sounds -no Ward catheter in place Extremities-no significant pitting edema or calf pain with palpation Skin-no concerning skin rashes noted Labs as detailed below Assessment and plan Diabetic ketoacidosis-resolved. Bicarb has improved to 22. Glucose readings are generally ranging in the 200 to low 300 range. His most recent hemoglobin A1c that I can find is 8.2 % from June of this year. Urinary tract infection-initially suspected. He did not really present with any symptoms suggestive of an active infection of his bladder although he has had recent urinary tract infections. His urine culture shows a low colony count. I think we can hold antibiotics at this time. Acute kidney injury-suspecting secondary to hypovolemia related to ketoacidosis. Creatinine value is improving from 2.9-1.7. His baseline is estimated somewhere between 1.3 and 1.5. Leukocytosis-resolved. Hyperkalemia-uncertain etiology to rise. Continue IV fluids and will reassess this evening and again tomorrow morning. Atrial fibrillation-paroxysmal. Patient is anticoagulated with Coumadin. He is also on flecainide with history of SVT. Obstructive sleep apnea-patient is compliant with CPAP and supplemental oxygen at 4 L overnight. Chronic kidney disease stage 3-baseline as detailed above. Insulin-dependent diabetes mellitus-continue with current insulin regimen and place. DVT prophylaxis-I will stop heparin at this time. Repeat INR value tomorrow morning considering concurrent Coumadin use. Disposition-possibly home in the coming 1-2 days with continued clinical improvement. Objective: Vital Signs Temp Pulse Resp BP Pulse Ox 37.0 C 83 16 130/74 H 89 L 12/27/17 15:15 12/27/17 15:15 12/27/17 15:15 12/27/17 15:15 12/27/17 15:15 Laboratory Results 12/27/17 05:37 12/27/17 12:40 12/26/17 12/27/17 12/28/17 05:59 05:59 05:59 Intake Total 3139 550 Output Total 6092 469 6325 Balance 1639 150 -1650 PT 22.4 SEC (12.0-15.0) H 12/26/17 04:50 INR 1.96 (0.83-1.16) H 12/26/17 04:50 ICD10 Worksheet Patient Problems: Problems Problem Status Onset DKA (diabetic ketoacidoses) Acute Renal failure (ARF), acute on chronic Acute Urinary tract infection Acute Atrial fibrillation Acute Bradycardia Acute C. difficile diarrhea Acute 08/05/14 Chest pain Acute Chest pain at rest Acute Dizziness Acute Hyperkalemia Acute Laceration Acute Primary osteoarthritis of left hip Acute Renal insufficiency Acute
[2017-12-27] MEDS ORDERED: WARFARIN SODIUM 5 MG TAB PO SCH (16:00)
[2017-12-27] MEDS: CEPACOL LOZENGE PO PRN ×3 (17:42→22:58)
[2017-12-27] MEDS: PRAVASTATIN SODIUM 10 MG TAB PO SCH (21:18)
[2017-12-28 05:47] LABS: INR 1.57 (0.83-1.16); PROTIME(PATIENT) 18.9 SEC (12.0-15.0)
[2017-12-28] MEDS: INSULIN LISPRO 100 UNIT/ML SC SCH ×2 (07:50→13:15)
[2017-12-28] MEDS: INSULIN 70/30 HUMAN 100 UNIT/ML SYR SC SCH ×2 (07:51→18:13)
[2017-12-28] MEDS: FLECAINIDE ACETATE 100 MG TAB PO SCH ×2 (07:52→18:13)
[2017-12-28] MEDS: ASPIRIN EC 81 MG TAB PO SCH (08:53)
[2017-12-28] MEDS: ALLOPURINOL 100 MG TAB PO SCH (08:53)
[2017-12-28] MEDS: OMEGA-3 FATTY ACIDS 1,000 MG CAP PO SCH ×3 (08:53→22:37)
[2017-12-28] MEDS: CEPACOL LOZENGE PO PRN (11:35)
[2017-12-28] MEDS: FUROSEMIDE 20 MG TAB PO SCH (15:16)
[2017-12-28] MEDS: WARFARIN SODIUM 7.5 MG TAB PO SCH (17:05)
--- NOTE | 2017-12-28 17:26 | ASMTCMCOM ---
CM Note CM Note Notes: Pt cleared by PT/OT for home. Anticipate he will dc home independent when medically stable. CM available for any changes. DC Plan: Independent Date Signed: 12/28/2017 05:26 PM Electronically Signed By:Rena Fermin RN
--- NOTE | 2017-12-28 18:19 | HOSPPROG ---
Hospitalist Progress Note Assessment/Plan: Subjective Follow-up on diabetic ketoacidosis, acute kidney injury, and suspected urinary tract infection. No acute events overnight. We reviewed that his creatinine value has improved to his baseline. Again patient states he is not currently or did not recently have any symptoms suggestive of urinary tract infection. Objective Vital signs as detailed below Exam General-awake alert conversant no acute distress, obese Heart-regular rate and rhythm no murmurs Lungs-Clear to auscultation with normal respiratory effort Abdomen-soft nontender nondistended normal bowel sounds -no Ward catheter in place Extremities-no significant pitting edema or calf pain with palpation Skin-no concerning skin rashes noted Labs as detailed below Assessment and plan Diabetic ketoacidosis-resolved. His most recent hemoglobin A1c that I can find is 8.2 % from June of this year. Urinary tract infection-initially suspected. He did not really present with any symptoms suggestive of an active infection of his bladder although he has had recent urinary tract infections. His urine culture shows a low colony count. I think we can hold antibiotics at this time. Acute kidney injury-suspecting secondary to hypovolemia related to ketoacidosis. Improved with a creatinine of 1.4 today. His baseline is estimated somewhere between 1.3 and 1.5. Leukocytosis-resolved. Hyperkalemia-improving. I think he is mostly volume repleted at this time so I will resume his home Lasix at 20 mg daily. He was previously on 20 mg twice a day. I anticipate this will likely be normal tomorrow. Continue IV fluids for another 24 hr. Atrial fibrillation-paroxysmal. Patient is anticoagulated with Coumadin. He is also on flecainide with history of SVT. Obstructive sleep apnea-patient is compliant with CPAP and supplemental oxygen at 4 L overnight. Chronic kidney disease stage 3-baseline as detailed above. Insulin-dependent diabetes mellitus-he has been using 70/30 insulin at home as it is the most affordable for him. I recommend that we increase the dose to 65 units twice a day. He is under the care of the astrobiologist. DVT prophylaxis-patient is on anticoagulation. Disposition-possibly home in the coming 1-2 days with continued clinical improvement. Objective: Vital Signs Temp Pulse Resp BP Pulse Ox 36.6 C 86 16 140/77 H 90 L 12/28/17 15:38 12/28/17 15:38 12/28/17 15:38 12/28/17 15:38 12/28/17 15:38 Laboratory Results 12/27/17 05:37 12/28/17 05:16 12/27/17 12/28/17 12/29/17 05:59 05:59 05:59 Intake Total 550 1800 1025 Output Total 400 3950 1550 Balance 150 -2150 -525 PT 18.9 SEC (12.0-15.0) H 12/28/17 05:16 INR 1.57 (0.83-1.16) H 12/28/17 05:16 ICD10 Worksheet Patient Problems: Problems Problem Status Onset DKA (diabetic ketoacidoses) Acute Renal failure (ARF), acute on chronic Acute Urinary tract infection Acute Atrial fibrillation Acute Bradycardia Acute C. difficile diarrhea Acute 08/05/14 Chest pain Acute Chest pain at rest Acute Dizziness Acute Hyperkalemia Acute Laceration Acute Primary osteoarthritis of left hip Acute Renal insufficiency Acute
[2017-12-28] MEDS: PRAVASTATIN SODIUM 10 MG TAB PO SCH (22:37)
[2017-12-29 06:28] LABS: INR 1.6 (0.83-1.16); PROTIME(PATIENT) 19.2 SEC (12.0-15.0)
[2017-12-29] MEDS: INSULIN 70/30 HUMAN 100 UNIT/ML SYR SC SCH ×2 (08:34→18:08)
[2017-12-29] MEDS: FLECAINIDE ACETATE 100 MG TAB PO SCH ×2 (09:33→18:07)
[2017-12-29] MEDS: ASPIRIN EC 81 MG TAB PO SCH (09:33)
[2017-12-29] MEDS: ALLOPURINOL 100 MG TAB PO SCH (09:33)
[2017-12-29] MEDS: FUROSEMIDE 20 MG TAB PO SCH (09:33)
[2017-12-29] MEDS: OMEGA-3 FATTY ACIDS 1,000 MG CAP PO SCH ×3 (09:33→20:32)
[2017-12-29] MEDS ORDERED: D50W 25 GM/50 ML SYR IVP PRN (14:49)
--- NOTE | 2017-12-29 15:27 | HOSPPROG ---
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: anticoagulated dispo: inpt Subjective: blood sugars remain elevated Objective: Vital Signs Temp Pulse Resp BP Pulse Ox 36.6 C 61 16 122/63 H 87 L 12/29/17 13:06 12/29/17 13:06 12/29/17 13:06 12/29/17 13:06 12/29/17 13:06 Microbiology 12/25/17 23:45 Urine Culture - Final Urine,Clean Catch Klebsiella Oxytoca Gram Neg Reid Lactose Upper Cutter#2 Two [place] Types Laboratory Results 12/27/17 05:37 12/29/17 05:08 12/28/17 12/29/17 12/30/17 05:59 05:59 05:59 Intake Total 1800 1525 Output Total 3950 2550 475 Balance -2150 -1025 -475 PT 19.2 SEC (12.0-15.0) H 12/29/17 05:08 INR 1.60 (0.83-1.16) H 12/29/17 05:08 - Physical Exam Constitutional: no apparent distress, appears nourished Eyes: PERRL, anicteric sclera Ears, Nose, Mouth, Throat: moist mucous membranes, hearing normal Cardiovascular: regular rate and rhythym, no murmur, rub, or gallop Respiratory: no respiratory distress, no rales or rhonchi Gastrointestinal: normoactive bowel sounds, soft, non-tender abdomen Genitourinary: No duron in urethra Skin: warm, normal color Musculoskeletal: full muscle strength Neurologic: AAOx3 ICD10 Worksheet Patient Problems: Problems Problem Status Onset DKA (diabetic ketoacidoses) Acute Renal failure (ARF), acute on chronic Acute Urinary tract infection Acute Atrial fibrillation Acute Bradycardia Acute C. difficile diarrhea Acute 08/05/14 Chest pain Acute Chest pain at rest Acute Dizziness Acute Hyperkalemia Acute Laceration Acute Primary osteoarthritis of left hip Acute Renal insufficiency Acute
[2017-12-29] MEDS: WARFARIN SODIUM 7.5 MG TAB PO SCH (16:34)
[2017-12-29] MEDS: INSULIN LISPRO 100 UNIT/ML SC SCH (18:08)
[2017-12-29] MEDS: PRAVASTATIN SODIUM 10 MG TAB PO SCH (20:32)
[2017-12-29] MEDS ORDERED: INSULIN LISPRO 100 UNIT/ML SC ONE (22:00)
[2017-12-30 05:22] LABS: INR 1.78 (0.83-1.16); PROTIME(PATIENT) 20.8 SEC (12.0-15.0)
[2017-12-30] MEDS: ALLOPURINOL 100 MG TAB PO SCH (07:58)
[2017-12-30] MEDS: OMEGA-3 FATTY ACIDS 1,000 MG CAP PO SCH (07:58)
[2017-12-30] MEDS: FLECAINIDE ACETATE 100 MG TAB PO SCH (07:59)
[2017-12-30] MEDS: ASPIRIN EC 81 MG TAB PO SCH (07:59)
[2017-12-30] MEDS: INSULIN LISPRO 100 UNIT/ML SC SCH ×2 (08:00→13:19)
[2017-12-30] MEDS: INSULIN 70/30 HUMAN 100 UNIT/ML SYR SC SCH (08:00)
[2017-12-30] MEDS ORDERED: INSULIN 70/30 HUMAN 100 UNIT/ML SYR SC SCH ×2 (08:21→14:01)
[2017-12-30 13:08] VITALS: BP 129/74
--- NOTE | 2017-12-30 14:13 | HOSPPROG ---
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 Laboratory Results 12/27/17 05:37 12/30/17 05:00 12/29/17 12/30/17 12/31/17 05:59 05:59 05:59 Intake Total 1525 2000 Output Total 2550 3025 100 Balance -1025 -1025 -100 PT 20.8 SEC (12.0-15.0) H 12/30/17 05:00 INR 1.78 (0.83-1.16) H 12/30/17 05:00 - Physical Exam Constitutional: no apparent distress, appears nourished Eyes: PERRL, anicteric sclera Ears, Nose, Mouth, Throat: moist mucous membranes, hearing normal Cardiovascular: regular rate and rhythym, no murmur, rub, or gallop Respiratory: no respiratory distress, no rales or rhonchi Gastrointestinal: normoactive bowel sounds, soft, non-tender abdomen Genitourinary: no bladder fullness, No duron in urethra Skin: warm, normal color Musculoskeletal: full muscle strength, no muscle tenderness Neurologic: AAOx3 Psychiatric: interacting appropriately ICD10 Worksheet Patient Problems: Problems Problem Status Onset DKA (diabetic ketoacidoses) Acute Renal failure (ARF), acute on chronic Acute Urinary tract infection Acute Atrial fibrillation Acute Bradycardia Acute C. difficile diarrhea Acute 08/05/14 Chest pain Acute Chest pain at rest Acute Dizziness Acute Hyperkalemia Acute Laceration Acute Primary osteoarthritis of left hip Acute Renal insufficiency Acute
--- NOTE | 2017-12-30 15:27 | GDS ---
DISCHARGE DIAGNOSES: 1. Uncontrolled diabetes. 2. Anion gap acidosis, not diabetic ketoacidosis, felt secondary to renal failure. 3. Acute kidney injury, now resolved. 4. Hyponatremia, now resolved. 5. Paroxysmal atrial fibrillation, on anticoagulation. 6. Chronic hypoxic respiratory failure. 7. Gout. Please see admission history and physical by Dr. Bert Lang. Presented with malaise. This was on t he 11. He was found to have an anion gap acidosis and BUN and creatinine of 113 and 2.9, hyponatre camryn, and hyperglycemia. He was felt to be DKA as the serum ketones were not back at that time. They ultimately came back negative. Given his type 2 physiology and daily insulin use, I think the etiol ogy of his anion gap acidosis is more consistent with renal failure from taking Lasix and profound hy perglycemia, as well as concurrent NIK inhibitor therapy. He was volume resuscitated with creatinine normalizing to his baseline of 1.3. Hemoglobin A1c returned at about 13.8. He has been losing weight lately, which he attributes to diet vannessa modifications, although I think it is more likely that he has uncontrolled diabetes. I did incre ase his insulin to 86 units b.i.d. of 70/30. He has financial constraints keeping him from getting a more effective insulin regimen, such as Lantus with lispro. He does see Dr. Zhu, who follows him . We spent a great deal of time talking about the importance of physical exercise and weight loss in ma naging his uncontrolled diabetes. He demonstrated understanding. His INR is subtherapeutic, but he was not bridged given his paroxysmal atrial fibrillation. Medications are unchanged, other than the increase of his insulin to 86 units b.i.d. I also decreased his Lasix to once daily. /[id number]/MODL
== END 2017-12-30 15:23 | disposition home or self-care (01) | DRG 638 ==
LOC: F2N 20:45 → F3E 12-26 12:13
PROVIDERS: ADMIT Internal Medicine; ATTEND Internal Medicine
DX: E11.65 Type 2 diabetes mellitus with hyperglycemia (principal); N17.9 Acute kidney failure, unspecified; E87.2 Acidosis; E87.1 Hypo-osmolality and hyponatremia; E87.5 Hyperkalemia; E11.22 Type 2 diabetes mellitus with diabetic chronic kidney disease; N18.3 Chronic kidney disease, stage 3 (moderate); I12.9 Hypertensive chronic kidney disease with stage 1 through stage 4 chronic kidney disease, or unspecified chronic kidney disease; J96.11 Chronic respiratory failure with hypoxia; M10.9 Gout, unspecified; I48.0 Paroxysmal atrial fibrillation; E66.01 Morbid (severe) obesity due to excess calories; Z68.36 Body mass index [BMI] 36.0-36.9, adult; G47.33 Obstructive sleep apnea (adult) (pediatric); R13.10 Dysphagia, unspecified; Z79.01 Long term (current) use of anticoagulants; Z79.4 Long term (current) use of insulin
CPT/HCPCS: 82435-PO; 82565-PO; 82947-PO; 84132-PO; 84295-PO; 84484-PO; 84520-PO; 85014-PO; 92610-GN; 97161-GP; 97165-GO; G8978-GP-CI; G8979-GP-CI; G8980-GP-CI; G8987-GO-CI; G8988-GO-CH; G8989-GO-CH; G8996-GN-CH; G8997-GN-CH; G8998-GN-CH; J0696; J1644; J1815